=== PATIENT | male | born 1980 | race African-American/Black ===

== ENCOUNTER 2019-08-28 20:00 | Emergency (ER) | payer SELFPAY ==
--- NOTE | ~2019-08-28 | XR_ITS ---
EXAMINATION: XR chest 2V DATE: 08/29/2019 00:07 INDICATION: Shortness of breath TECHNIQUE: PA and lateral views of the chest were obtained. COMPARISON: None FINDINGS: The lungs are clear with no focal airspace opacities, pulmonary edema, pleural effusion or pneumothor ax. The cardiomediastinal silhouette is normal. Visualized bones and soft tissues are unremarkable. IMPRESSION: 1. No acute cardiopulmonary disease. Reviewed, dictated and finalized at location A. GER ASSESSMENT
[2019-08-28 20:30] VITALS: BP 166/102; PULSE 77; RESP 16; TEMP 37.3; O2SAT 100
[2019-08-28 23:15] VITALS: BP 116/115; PULSE 77; RESP 18; O2SAT 97
--- NOTE | 2019-08-28 23:18 | ED.GENADULT ---
HPI - General Adult General Chief complaint: Recheck/Abnormal Lab/Rx Stated complaint: High BP Time Seen by Provider: 08/28/19 23:09 Source: patient and family Mode of arrival: ambulatory Limitations: no limitations History of Present Illness HPI narrative: Patient is here because his significant other checked his blood pressure today and found it to be 160/100 on their home machine, they then went to a pharmacy and the pharmacist checked it at this same results. She checked his blood pressure because he has been complaining intermittent headache. Patient has a history of hypertension for which she was treated for 2 years ago, he stopped taking his medicine because he lost 100 pounds and felt like that was sufficient. I asked him what his blood pressure was at the time that he stopped taking his medicines he recalls that his systolic blood pressure was iin the 160s and his but his diastolic was lower. He is also been using his albuterol inhaler more frequently. Patient works in a [employer], and he states that he has seasonal allergies. Onset (ago): day(s) Location: head (not currently hurting.) Associated symptoms: denies other symptoms Treatments prior to arrival: none Related Data Allergies Allergy/AdvReac Type Severity Reaction Status Date / Time nut - unspecified Allergy Unknown Unknown Verified 02/19/19 21:34 BP med Allergy Mild Rash Uncoded 01/14/19 18:32 Review of Systems Review of Systems: All systems reviewed & are unremarkable except as noted in HPI and below PMFSH Past Medical History Medical History Hypertension Social History Social History (Updated 08/28/19 @ 23:35 by Ivania Yuan PA-C) Smoking status: Never smoker Alcohol intake: current Alcohol use details: social Substance use type: marijuana Living arrangements: with family Occupation/Education: occupation 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 Gender identity (if verbalized by the patient): Male Exam Const: General: no acute distress and alert Orientation/consciousness: patient oriented x3 HENMT: Head: normal to inspection Ears: TM's normal bilaterally Mouth: Yes moist mucous membranes Eyes: Conjunctivae: conjunctivae normal Pupils: Equal, round and reactive pupils present Neck: Carotids: other (no carotid bruit) Resp: Effort & Inspection: normal respiratory effort Auscultation: diminished lung sounds bilateral Cardio: Rate: regular rate Rhythm: regular rhythm GI: GI Palp: Yes Soft to palpation Skin: General skin exam: normal color Rashes: no rashes Neuro: General: patient oriented x3 and moves all extremities Course Course Emergency Course: Patient feels better after his albuterol treatment. Will review the use of his metered-dose inhaler with a spacer. Patient's blood pressure has remained the same but he states he feels better. Heart size is normal on chest x-ray his EKG was sinus rhythm. Labs were remarkable only for metabolic alkalosis. Discussed possible etiologies for his hypertension, patient's fianc? is concerned that it is primarily stress related. Patient should also have an evaluation for obstructive sleep apnea. We will give him the name of primary care physician to follow-up with Vital Signs Vital signs: Vital Signs Temperature 37.3 C 08/28/19 20:30 Pulse Rate 77 08/28/19 20:30 Respiratory Rate 16 08/28/19 20:30 Blood Pressure 166/102 H 08/28/19 20:30 Pulse Oximetry 100 08/28/19 20:30 Temperature 37.3 C 08/28/19 20:30 Pulse Rate 74 08/28/19 23:58 Respiratory Rate 16 08/28/19 23:58 Blood Pressure 166/115 H 08/28/19 23:19 Pulse Oximetry 98 08/28/19 23:19 Medical Decision Making Vital Signs Vital Signs: Vital Signs Temperature 37.3 C 08/28/19 20:30 Pulse Rate 77 08/28/19 20:30 Respiratory Rate 16 08/28/19 20:30 Blood Pressure 166/102 H 08/28/19 20:30 Puls
[2019-08-28 23:19] VITALS: BP 166/115; PULSE 79; RESP 20; O2SAT 98
--- NOTE | 2019-08-28 23:31 | ECG_ITS ---
Measurements Intervals [place] Rate: 80 P: 69 NM: 174 QRS: 82 QRSD: 88 T: -84 QT: 393 QTc: 455 Interpretive Statements SINUS RHYTHM POSSIBLE LEFT ATRIAL ENLARGEMENT DELAYED PRECORDIAL R/S TRANSITION ST-T WAVE ABNORMALITY IN INF/LAT LEADS- CONSIDER ISCHEMIA BASELINE ARTIFACT- I, AVR, V1 ABNORMAL ECG Electronically Signed On 08-29-2019 6:32:27 INTERIOR DESIGN PROFESSIONAL by Jaswant Washington D.O.
[2019-08-28 23:49] VITALS: PULSE 80; RESP 16
[2019-08-28] MEDS: ALBUTEROL SULFATE NEB 2.5 MG/3 ML INH INHALATION (23:49)
[2019-08-28 23:50] LABS: Basophils Absolute Auto 0.1 K/mm3 (0.0-0.1); Basophils Percent Auto 0.7 % (0.2-1.2); Eosinophils Absolute Auto 0.3 K/mm3 (0-0.3); Eosinophils Percent Auto 3.3 % (0-4.4); Hematocrit 46.7 % (42.0-52.0); Hemoglobin 15.3 g/dL (14.0-18.0); Immature Granulocyte Absolute 0.04 K/mm3 (0.00-0.031); Immature Granulocyte Percent A 0.5 % (0-0.5); Lymphocytes Absolute Auto 2.85 K/mm3 (0.9-3.2); Lymphocytes Percent Auto 32.6 % (18.3-44.2); Mean Corpuscular HGB Conc 32.8 g/dl (32-36); Mean Corpuscular Hemoglobin 30.1 pg (26-34); Mean Corpuscular Volume 91.7 fl (80-100); Mean Platelet Volume 9.4 fl (7.4-10.4); Monocytes Absolute Auto 0.9 K/mm3 (0.1-0.6); Monocytes Percent Auto 9.8 % (2.6-8.5); Neutrophils Absolute Auto 4.6 K/mm3 (1.3-6.7); Neutrophils Percent Auto 53.1 % (45.5-73.1); Platelet Count Result 242 k/mm3 (150-375); Red Blood Count 5.09 M/mm3 (4.6-6.20); Red Cell Distribution Width 12.2 % (11.5-14.5); White Blood Count 8.7 K/mm3 (4.5-10.0)
[2019-08-28 23:58] VITALS: PULSE 74; RESP 16
[2019-08-29 00:01] LABS: Alanine Aminotransferase 22 U/L (4-50); Albumin Level 4.1 g/dL (3.5-5.1); Alkaline Phosphatase 76 U/L (38-126); Aspartate Amino Transferase 34 U/L (17-59); Bilirubin,Total 0.9 mg/dL (0.2-1.3); Blood Urea Nitrogen 13 mg/dL (9-20); Calcium 8.5 mg/dL (8.4-10.2); Carbon Dioxide 32 mmol/L (22-30); Chloride 99 mmol/L (98-107); Estimated CRCL calculation 133 ml/min; Estimated Glomerular Filt Rate > 60; Glucose 73 mg/dL (75-110); Potassium 4.2 mmol/L (3.4-5.0); Sodium 139 mmol/L (137-145)
[2019-08-29 00:58] VITALS: BP 154/99; PULSE 85; RESP 17; O2SAT 100
[2019-08-29 01:01] LABS: Add Urine Microscopic? YES; Appearance Urine Clear (Clear); Bilirubin Urine Negative (Negative); Blood Urine Negative (Negative); Color Urine Yellow (Yellow); Glucose Urine UA Negative (Negative); Ketones Urine Negative (Negative); Leukocyte Esterase Ur Negative LEU/UL (Negative); Mucus Urine Moderate /lpf; Nitrate Urine Negative (Negative); Protein Urine Negative (Negative); RBC Urine 0-2 /hpf (0-2); Specific Grav Ur 1.025 (1.001-1.035); Squamous Epithelial Cell Urine Rare /hpf (Few); WBC Urine 0-3 /hpf
== END 2019-08-29 00:59 | disposition home or self-care (01) ==
PROVIDERS: Physician Assistant; Emergency Provider Emergency Medicine
DX: I10 Essential (primary) hypertension (principal); J45.20 Mild intermittent asthma, uncomplicated
CPT/HCPCS: 36415; 71046; 80053; 81001; 85025; 93005; 94640; 99283

== ENCOUNTER 2019-09-10 13:35 | Observation (INO) | payer SELFPAY ==
[2019-09-10] VITALS (14 sets, daily range): BP systolic 148–207; BP diastolic 81–106; PULSE 86–120; RESP 18–30; TEMP 36.5–37.5; O2SAT 91–98; BMI 36.3
--- NOTE | ~2019-09-10 | NM_ITS ---
EXAMINATION: NM lung vent and perfusion DATE: 09/10/2019 18:03 INDICATION: Shortness of breath asthma. TECHNIQUE: Before mCi xenon-133 by inhalation and 5.5 mCi Tc-99m MAA by intravenous route. Scintigra phic images of the chest were obtained. COMPARISON: Chest radiograph and CT dated 09/10/2019 FINDINGS: There is homogeneous radiotracer activity throughout the lungs on the single breath ventilation seque nce. There is diffuse retention of radiotracer activity on the washout images consistent with given h istory of asthma. There is relatively homogeneous perfusion throughout the lungs. No discrete ventil ation and perfusion mismatch is identified. IMPRESSION: 1. Normal perfusion study consistent with very low probability for pulmonary embolism. 2. Bilateral diffuse retention of activity on ventilation washout images consistent with obstructive pulmonary disease and given history of asthma. Reviewed, dictated and finalized at location A. CTOR OF SCIENTIFIC RESEARCH IMPRESSION: 1. Normal perfusion study consistent with very low probability for pulmonary em bolism. 2. Bilateral diffuse retention of activity on ventilation washout images consis tent with obstructive pulmonary disease and given history of asthma.
--- NOTE | ~2019-09-10 | CT_ITS ---
EXAMINATION: CTA chest PE protocol DATE: 09/10/2019 15:26 INDICATION: Shortness of breath TECHNIQUE: Computed tomography (CT) pulmonary angiogram of the chest was performed with 100 mL Omnipa que-350 intravenous contrast. Due to suboptimal timing of the contrast bolus and significant respirat ory motion artifact on the initial images, a repeat CT pulmonary angiogram of the chest was performed with an additional 60 mL Omnipaque 350 intravenous contrast. Additional 3D reconstructions utilizing coronal maximum intensity projection (MIP) were performed. Automated exposure control and iterative reconstruction technique were employed. The dose-length product was 1701.03 mGy-cm. COMPARISON: None FINDINGS: Adequate but suboptimal contrast opacification of the pulmonary arteries on the initial imaging but w ith additional limitations resulting from prominent streak artifact from dense contrast in the superi or vena cava and right atrium as well as moderate respiratory motion artifact in the infrahilar regio ns and bilateral lower lung zones. There is mild improvement in the degree of contrast opacification the repeat images but with more extensive mild to moderate respiratory motion throughout the lungs. N o central pulmonary arterial embolism through the lobar pulmonary arteries. Sensitivity and specifici ty are significantly decreased in the more peripheral pulmonary arteries. On both sets imaging howeve r there appears to be significantly decreased attenuation of the blood pool in the right basilar segm ental pulmonary arteries relative to the right middle lobe arteries at the same level on images with areas relatively mild motion which is suspicious for pulmonary embolism. Minimal atelectasis at the base of the right middle lobe and lingula. No pneumonia, pulmonary edema, pleural effusion or pneumothorax. Heart size is normal. No pericardial effusion. Thoracic aorta is no rmal in caliber with no dissection. No pathologically enlarged thoracic lymphadenopathy. Bilateral gy necomastia. Visualized upper abdomen is unremarkable. Mild to moderate thoracic spondylosis with military equipment specialist jim mild anterior wedging at T7, T8 and T9. IMPRESSION: 1. Significantly limited study due on both initial and repeat imaging due to suboptimal contrast opac ification, prominent streak artifact and mild to moderate respiratory motion artifact which significa ntly decreases sensitivity and specificity in the smaller subsegmental pulmonary arteries. No central pulmonary embolism through the lobar pulmonary arteries but with suspicion for pulmonary embolism in the basilar segmental pulmonary arteries of the right lower lobe. Would consider VQ scan for further evaluation. Dr. Thompson discussed these findings with ZENOBIA Miller at 3:55 PM. Reviewed, dictated and finalized at location A. W CUTTER IMPRESSION: 1. Significantly limited study due on both initial and repeat imaging due to lindsey boptimal contrast opacification, prominent streak artifact and mild to moderate respiratory motion artifact which significantly decreases sensitivity and spec ificity in the smaller subsegmental pulmonary arteries. No central pulmonary em bolism through the lobar pulmonary arteries but with suspicion for pulmonary em bolism in the basilar segmental pulmonary arteries of the right lower lobe. Wou ld consider VQ scan for further evaluation. Dr. Thompson discussed these findin gs with ZENOBIA Miller at 3:55 PM.
--- NOTE | ~2019-09-10 | XR_ITS ---
EXAMINATION: XR chest 2V DATE: 09/10/2019 18:02 INDICATION: Cough. Hypertension. Asthma. TECHNIQUE: PA and lateral views of the chest were obtained. COMPARISON: Chest radiograph dated 08/28/2019 FINDINGS: Minimal atelectasis at the right costophrenic angle. No other airspace opacities, pulmonary edema, pl eural effusion or pneumothorax. The cardiomediastinal silhouette is normal. Minimal to mild anterior wedging of a few mid thoracic vertebral bodies. IMPRESSION: 1. Minimal atelectasis at the lateral right lung base. No other acute cardiopulmonary disease. Reviewed, dictated and finalized at location A. ING OPERATOR IMPRESSION: 1. Minimal atelectasis at the lateral right lung base. No other acute cardiopul monary disease.
--- NOTE | 2019-09-10 13:52 | ECG_ITS ---
Measurements Intervals [place] Rate: 88 P: 66 CA: 168 QRS: 74 QRSD: 92 T: -60 QT: 373 QTc: 452 Interpretive Statements SINUS RHYTHM ST-T WAVE ABNORMALITY IN INF/LAT LEADS- CONSIDER ISCHEMIA ABNORMAL ECG Electronically Signed On 09-10-2019 16:14:25 BRANCH LIBRARY CLERK by Jaswant Washington D.O.
[2019-09-10] MEDS: ALBUTEROL SULFATE NEB 2.5 MG/0.5 ML INH 20 MG INHALATION ×2 (14:07→16:22)
[2019-09-10] MEDS: IPRATROPIUM BR 0.02% INH SOLN 0.5 MG/2.5 ML VIAL 1 MG INHALATION ×2 (14:08→16:22)
--- NOTE | 2019-09-10 14:18 | ED.GENADULT ---
HPI - General Adult General Chief complaint: Asthma Stated complaint: sob/asthma Time Seen by Provider: 09/10/19 13:46 Source: patient, family and old records reviewed Mode of arrival: ambulatory Limitations: no limitations History of Present Illness HPI narrative: Patient is a 39-year-old male who presents with dyspnea noting for the last several days he has felt short of breath with cough patient notes congestion and rhinorrhea. Patient notes he was seen 2 weeks ago. Patient was started on hydrochlorothiazide but has not followed up with primary care. Patient denies fever vomiting diarrhea chest pain patient also notes history of tobacco abuse. 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 Gender identity (if verbalized by the patient): Male Exam Narrative: Exam Narrative: GENERAL: Well-appearing, well-nourished, and in no acute distress. HEAD: Normocephalic, atraumatic. EYES: PERRLA and EOMI. ENT: Nares clear, no rhinorrhea or epistaxis. Mucous membranes moist. Oropharynx without tonsillar hypertrophy exudate or other lesions. Bilateral TMs pearly canas nonbulging NECK: Supple. No adenopathy or masses. CHEST: Clear to auscultation. No respiratory distress. No wheezes rales or rhonchi HEART: Regular rate and rhythm. No murmur heard. Normal peripheral pulses. ABDOMEN: Soft, nontender, nondistended EXTREMITIES: Normal range of motion. No edema. SKIN: Warm, dry, no rash. NEURO: No focal deficits. Alert and oriented x3. PSYCH: Normal mood and affect. Course Course Emergency Course: Patient in the room at this time aware of case findings treatment plan and diagnosis agreeing to stay in hospital due to his hypoxemia Consultations Consultation #1: Spoke with hospitalist who is agreed to accept the patient Vital Signs Vital signs: Vital Signs Temperature 97.7 F 09/10/19 13:47 Pulse Rate 100 09/10/19 13:47 Respiratory Rate 30 H 09/10/19 13:47 Blood Pressure 171/99 H 09/10/19 13:47 Pulse Oximetry 91 09/10/19 13:47 Temperature 98.0 F 09/10/19 15:32 Pulse Rate 106 H 09/10/19 16:26 Respiratory Rate 20 09/10/19 16:26 Blood Pressure 158/82 H 09/10/19 16:22 Pulse Oximetry 93 09/10/19 16:22 Medical Decision Making MDM Narrative Medical decision making narrative: Patient in the room at this time aware of case findings treatment plan and diagnosis will be kept in hospital was requiring oxygen due to hypoxemia no PE. No pneumonia seen on exam negative influenza patient with potential for COPD versus asthma exacerbation given his cough and history of tobacco abuse. Patient hemodynamically stable at this time was given steroids and updrafts in the emergency department. Vital Signs Vital Signs: Vital Signs Temperature 97.7 F 09/10/19 13:47 Pulse Rate 100 09/10/19 13:47 Respiratory Rate 30 H 09/10/19 13:47 Blood Pressure 171/99 H 09/10/19 13:47 Pulse Oximetry 91 09/10/19 13:47 Temperature 98.0 F 09/10/19 15:32 Pulse Rate 106 H 09/10/19 16:26 Respiratory Rate 20 09/10/19 16:26 Blood Pressure 158/82 H 09/10/19 16:22 Pulse Oximetry 93 09/10/19 16:22 Lab Data Result diagrams: 09/10/19 14:11 Labs: Lab Results 09/10/19 09/10/19 Range/Units 14:11 14:11 PT 12.9 (11.1-14.7) Seconds INR 1.0 APTT 29.6 (22.3-36.8) SECOND
--- NOTE | 2019-09-10 14:28 | PCRCNOTE ---
PT REFUSED AGBS
[2019-09-10 14:31] LABS: Alanine Aminotransferase 19 U/L (4-50); Albumin Level 4.3 g/dL (3.5-5.1); Alkaline Phosphatase 81 U/L (38-126); Aspartate Amino Transferase 28 U/L (17-59); Bilirubin,Total 1.2 mg/dL (0.2-1.3); Blood Urea Nitrogen 10 mg/dL (9-20); Calcium 8.8 mg/dL (8.4-10.2); Carbon Dioxide 29 mmol/L (22-30); Chloride 96 mmol/L (98-107); Estimated Glomerular Filt Rate > 60; Glucose 92 mg/dL (75-110); Sodium 137 mmol/L (137-145)
[2019-09-10 14:33] LABS: Prothrombin Time 12.9 Seconds (11.1-14.7)
[2019-09-10 14:42] LABS: Partial Thromboplastin Time 29.6 SECONDS (22.3-36.8)
[2019-09-10] MEDS: methylPREDNISolone SOD SUCC 125 MG VIAL IV PUSH (14:42)
[2019-09-10 14:43] LABS: NT Pro B Type Natriuretic Pept 632 PG/ML (5-100); Troponin I 0.013 ng/mL (0.000-0.034)
[2019-09-10] MEDS: hydrALAZINE HCL 20 MG/ML VIAL 10 MG IV PUSH (14:58)
--- NOTE | 2019-09-10 15:51 | PC.NURSE ---
Pt spo2 remained 87-88% on RA while sleeping. Pt placedon 2L O2. SPO2 increased to 93%.
[2019-09-10] MEDS: SODIUM CHLORIDE 0.9% IV 1,000 ML 125 ML IV CONT (20:20)
[2019-09-10] MEDS: FAMOTIDINE 20 MG/2 ML VIAL IV PUSH (20:20)
[2019-09-10] MEDS: ALBUTEROL SULFATE NEB 2.5 MG/0.5 ML INH 5 MG INHALATION (21:02)
[2019-09-10] MEDS: IPRATROPIUM BR 0.02% INH SOLN 0.5 MG/2.5 ML VIAL INHALATION (21:02)
--- NOTE | 2019-09-10 21:02 | PC.NURSE ---
This patient, Bruno Rodriguez, was admitted to Medical Room 248-. Patient/family oriented to hospital policies and general routines including ID bracelet, bed and alarms, visiting hours, pain management, procedures, bathroom and other care routines, personal items, smoking policy, room service/diet, and visiting hours. Valuables list has been completed. Information on how to activate the Rapid Response Team has been discussed. Patient/Family are encouraged to report perceived risks to care and to ask questions if they do not understand what they are told or what they should do.
--- NOTE | 2019-09-10 23:05 | PM.IMHP ---
H&P: HPI History of Present Illness Chief complaint: Asthma exacerbation, hypoxemia Narrative: Bruno Rodriguez is a 39 year old male who has a history of asthma and hypertension. The patient recently was diagnosed with hypertension and has been on hydrochlorothiazide. However this has not been working for him he has been checking his blood pressure at home is still been remaining only 180/80 or higher. He has been using a rescue inhaler but has not been helping him. He recently moved here from [place] and is unemployed. His is at the bedside and providing the information. The also believes that the patient has sleep apnea but has never been tested for it. They have found the primary care doctor that he was he for the 1st time on the 10th of this month. However believe is a misery not in [place] so they will need a list of providers that her taking new patients in this area. The patient smokes marijuana every day and still continues to smoke cigarettes. He does not have a nebulizer machine or for a can't afford 1 at this time. Hydralazine in the emergency room and nebulizer treatments. Solu-Medrol was started as well. Patient was placed on oxygen at 2 L per nasal cannula. He was admitted overnight for exacerbation of asthma. Date of service 09/10/2019 Review of Systems Review of Systems: Narrative: According to the the patient has been short of breath for at least several days has had a cough and congestion with a right nose. This is been going on for about 2 weeks. All systems reviewed & are unremarkable except as noted in HPI and below Constitutional: Constitutional: Reports as per HPI and Reports no additional constitutional complaints Eyes: Eyes: Reports as per HPI and Reports no additional eye complaints ENT: Reports system reviewed and no additional complaints, except as documented and Reports Normal hearing present Cardiovascular: Cardiovascular: Reports no additional cardiovascular complaints Respiratory: Respiratory: Reports no additional respiratory complaints and Reports no additional respiratory complaints Gastrointestinal: Gastrointestinal: Reports as per HPI and Reports no additional gastrointestinal complaints Musculoskeletal: Musculoskeletal: Reports no additional musculoskeletal complaints Integumentary/Breasts: Skin/Breast: Reports system reviewed and no additional complaints, except as docu and Reports as per HPI Neurologic: Reports system reviewed and no additional complaints, except as documented, Reports as per HPI and Reports Normal hearing present Psychiatric: Psychiatric: Reports no additional psychiatric complaints and Reports as per HPI Endocrine: Endocrine: Reports no additional endocrine complaints Hematologic/Lymphatic: Hematologic/Lymphatic: Reports no additional hematologic/lymphatic complaints Allergic/Immunologic: Allergic/Immunologic: Reports no additional allergic/immunologic complaints [facility] Family History Family History (Updated 09/10/19 @ 23:10 by Edel Oneill NP) Sibling Hypertension Mother Hypertension Social History Social History (Updated 09/10/19 @ 23:12 by Edel Oneill NP) Social History: The patient lives with his . He does not have a durable power ip attorney. He is a full code. He has no children. 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 He was supposed to start work at a new job tomorrow but has not been able to make it. He smokes marijuana on a daily basis. He smokes cigarettes a half pack cigarettes a day. 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
[2019-09-10] MEDS: MAGNESIUM SULF 2 GM/WATER 50ML 2 GM/50 ML BAG IVPB (23:35)
[2019-09-10] MEDS: methylPREDNISolone SOD SUCC 125 MG VIAL 60 MG IV PUSH (23:36)
[2019-09-10] MEDS: NICOTINE (*PBKC) 14 MG PATCH 1 PATCH TRANSDERM (23:39)
[2019-09-11] VITALS (12 sets, daily range): BP systolic 148–180; BP diastolic 78–98; PULSE 101–111; RESP 18–23; TEMP 36.7–37.3; O2SAT 94–97
[2019-09-11] MEDS: ALBUTEROL SULFATE NEB 2.5 MG/0.5 ML INH 5 MG INHALATION ×3 (02:26→14:35)
[2019-09-11] MEDS: IPRATROPIUM BR 0.02% INH SOLN 0.5 MG/2.5 ML VIAL INHALATION ×3 (02:26→14:35)
[2019-09-11] MEDS: SODIUM CHLORIDE 0.9% IV 1,000 ML 125 ML IV CONT ×2 (04:59→14:00)
[2019-09-11 05:44] LABS: Basophils Percent Auto 0.1 % (0.2-1.2); Hematocrit 45.2 % (42.0-52.0); Immature Granulocyte Absolute 0.05 K/mm3 (0.00-0.031); Immature Granulocyte Percent A 0.4 % (0-0.5); Lymphocytes Absolute Auto 0.32 K/mm3 (0.9-3.2); Lymphocytes Percent Auto 2.8 % (18.3-44.2); Mean Corpuscular HGB Conc 33.2 g/dl (32-36); Mean Corpuscular Hemoglobin 30.5 pg (26-34); Mean Corpuscular Volume 91.9 fl (80-100); Mean Platelet Volume 9.1 fl (7.4-10.4); Monocytes Absolute Auto 0.1 K/mm3 (0.1-0.6); Monocytes Percent Auto 0.8 % (2.6-8.5); Neutrophils Absolute Auto 10.9 K/mm3 (1.3-6.7); Neutrophils Percent Auto 95.9 % (45.5-73.1); Platelet Count Result 258 k/mm3 (150-375); Red Blood Count 4.92 M/mm3 (4.6-6.20); Red Cell Distribution Width 12.4 % (11.5-14.5); White Blood Count 11.4 K/mm3 (4.5-10.0)
[2019-09-11 05:58] LABS: Alanine Aminotransferase 20 U/L (4-50); Albumin Level 4.3 g/dL (3.5-5.1); Alkaline Phosphatase 68 U/L (38-126); Aspartate Amino Transferase 28 U/L (17-59); Bilirubin,Total 0.8 mg/dL (0.2-1.3); Blood Urea Nitrogen 9 mg/dL (9-20); Calcium 8.6 mg/dL (8.4-10.2); Carbon Dioxide 27 mmol/L (22-30); Chloride 95 mmol/L (98-107); Estimated CRCL calculation 148 ml/min; Estimated Glomerular Filt Rate > 60; Glucose 200 mg/dL (75-110); Magnesium 2.1 mg/dL (1.6-2.3); Potassium 3.9 mmol/L (3.4-5.0); Sodium 138 mmol/L (137-145)
[2019-09-11] MEDS: methylPREDNISolone SOD SUCC 125 MG VIAL 60 MG IV PUSH ×2 (06:08→13:55)
[2019-09-11 07:13] LABS: Thyroid Stimulating Hormone Reflex 0.327 uIU/mL (0.465-4.68)
[2019-09-11] MEDS: FAMOTIDINE 20 MG/2 ML VIAL IV PUSH (10:37)
[2019-09-11] MEDS: NICOTINE (*PBKC) 14 MG PATCH 1 PATCH TRANSDERM (10:37)
[2019-09-11] MEDS: hydrALAZINE HCL 20 MG/ML VIAL 10 MG IV PUSH (10:47)
[2019-09-11] MEDS: BENZOCAINE/MENTHOL (*BKC) 18 EA LOZENGE 1 LOZENGE PO (13:55)
--- NOTE | 2019-09-11 15:04 | PM.IMPN ---
Progress Note: A&P Assessment and Plan (1) Asthma with acute exacerbation: Qualifiers: Asthma severity: unspecified severity Asthma persistence: unspecified Qualified Code(s): J45.901 - Unspecified asthma with (acute) exacerbation Code(s): J45.901 - Unspecified asthma with (acute) exacerbation Status: Chronic Assessment and Plan: Clinically improved. On room air. Will discharge home today with Flovent, tapering predisone, albuterol HFA. (2) Hypertension: Qualifiers: Hypertension type: essential hypertension Qualified Code(s): I10 - Essential (primary) hypertension Code(s): I10 - Essential (primary) hypertension Status: Chronic Assessment and Plan: Blood pressure reviewed on 09/11/2019 and remains elevated. Will have patient continue home HCTZ and add amlodipine. (3) Tobacco abuse: Code(s): Z72.0 - Tobacco use Status: Acute Assessment and Plan: Continue nicotine patch. Cessation encouraged. (4) Marijuana use: Code(s): F12.90 - Cannabis use, unspecified, uncomplicated Status: Acute Assessment and Plan: Encouraged patient to use other methods. (5) DVT prophylaxis: Code(s): Z29.9 - Encounter for prophylactic measures, unspecified Status: Acute Assessment and Plan: SCDs. Time Spent With Patient Time with patient: 15 - 25 minutes Subjective Date/time seen: 09/11/19 15:04 Interval history: Date of Service: 09/11/2019. Review of Systems Review of Systems: Narrative: Feels better. Wants to go home. Constitutional: Constitutional: Denies chills and Denies fever(s) ENT: Reports system reviewed and no additional complaints, except as documented Cardiovascular: Cardiovascular: Denies chest pain Respiratory: Respiratory: Reports cough and Denies dyspnea Gastrointestinal: Gastrointestinal: Denies abdominal pain, Denies nausea and Denies vomiting Genitourinary: Genitourinary: Reports no additional male genitourinary complaints Musculoskeletal: Musculoskeletal: Reports neck pain Integumentary/Breasts: Skin/Breast: Denies rash Neurologic: Denies headache(s) Psychiatric: Psychiatric: Denies anxiety, Denies confusion and Denies depression Exam Narrative: Exam Narrative: Awake and alert. Const: General: no acute distress HENMT: Mouth: Yes moist mucous membranes Neck: Neck: supple Lymphatic: lymphadenopathy not noted Resp: Auscultation: no rales, no wheezes and diminished lung sounds Cardio: Rate: regular rate Rhythm: regular rhythm GI: Inspection: non-distended GI Palp: Yes Soft to palpation and No Tenderness to palpation present (GI) Auscultation: normal bowel sounds Skin: General skin exam: no rashes or lesions noted Neuro: Cognition (Neuro): normal cognition Speech: normal speech Extrem: General: no edema Psych: Mental Status: mental status grossly normal Affect: normal affect Objective Data Vital Signs Vital Signs: Vital Signs - 24 hr 09/10/19 15:32 09/10/19 15:46 09/10/19 16:22 Temperature 98.0 F Pulse Rate 120 H 112 H Respiratory Rate 24 H 28 H Blood Pressure 186/106 H 179/81 H 158/82 H Pulse Oximetry 98 93 09/10/19 16:26 09/10/19 18:55 09/10/19 20:00 Temperature 98.7 F Pulse Rate 106 H 100 108 H Respiratory Rate 20 20 Blood Pressure 158/90 H Pulse Oximetry 97 09/10/19 20:04 09/10/19 21:02 09/10/19 21:08 Temperature 97.8 F Pulse Rate 101 H 104 H 104 H Respiratory Rate 30 H 20 18 Blood Pressure 148/90 H Pulse Oximetry 95 94 09/10/19 21:11 09/10/19 22:39 09/11/19 02:00 Temperature 99.5 F 99.1 F Pulse Rate 101 H 113 H 103 H Respiratory Rate 20 20 20 Blood Pressure 161/88 H 157/81 H Pulse Oximetry 97 97 09/11/19 02:32 09/11/19 02:42 09/11/19 04:00 Temperature Pulse Rate 101 H 103 H 106 H Respiratory Rate 20 20 Blood Pressure Pulse Oximetry 09/11/19 05:50 09/11/19 08:19 09/11/19 08:29 Tem
[2019-09-11] MEDS: AMLODIPINE BESYLATE 5 MG TABLET PO (16:11)
--- NOTE | 2019-09-11 20:01 | PM.DS ---
DS: Diagnosis Admitting Diagnosis Admitting Diagnosis: Unspecified asthma with (acute) exacerbation Discharge Diagnosis (1) Asthma with acute exacerbation: Qualifiers: Asthma persistence: unspecified Asthma severity: unspecified severity Qualified Code(s): J45.901 - Unspecified asthma with (acute) exacerbation Code(s): J45.901 - Unspecified asthma with (acute) exacerbation Status: Chronic (2) Hypertension: Qualifiers: Hypertension type: essential hypertension Qualified Code(s): I10 - Essential (primary) hypertension Code(s): I10 - Essential (primary) hypertension Status: Chronic (3) Tobacco abuse: Code(s): Z72.0 - Tobacco use Status: Acute (4) Marijuana use: Code(s): F12.90 - Cannabis use, unspecified, uncomplicated Status: Acute DS: Summary Hospital Course Reason for hospitalization: Shortness of breath. Hospital Course: Date of Service of Discharge: September 11, 2019. History of Present Illness: Patient is a 39-year-old with known as benign hypertension. Patient was recently diagnosed with hypertension started on hydrochlorothiazide. Patient present to the emergency room with shortness of breath and cough. Patient does have a rescue inhaler but has never had maintenance inhalers. No recent fever or chills. No chest pain. He does continue to smoke tobacco as well as marijuana. In the emergency room, findings were consistent with asthma exacerbation for which she was given nebulizer treatments and IV Solu-Medrol. Patient was felt appropriate for placement in observation for further evaluation and treatment as blood pressure was also elevated. Course in Hospital: On admission, patient was placed on the medical floor with telemetry. He was started on nebulizer treatments as well as IV Solu-Medrol. No antibiotics were needed as he did not have a bacterial infectious process. He remained on room air throughout his stay. Patient rapidly improved. By the day after admission, patient was feeling much improved. Lung exam improved with no wheezing heard by the time of discharge. Discussion was held with patient regarding having a maintenance steroid inhaler at home at discharge as well as rescue inhaler. Additionally, plan to taper steroids at discharge. Blood pressure was monitored throughout his stay and did remain elevated. The low-dose hydrochlorothiazide was not continued but patient reports had some benefit at home although blood pressure not optimal. Amlodipine was added while in hospital with plan to continue at discharge. Patient had no chest pain, headaches or dizziness while in hospital. Patient was encouraged on cessation of both tobacco and marijuana use. Nicotine patch was placed with plan to continue at discharge. With the patient stabilized, he was discharged home on the afternoon of September 11, 2019. Status at Discharge Cognitive/behavioral status at discharge: Stable. Functional status at discharge: independent ambulation Overall status at discharge: patient is back to baseline Time Spent with Patient Time attestation: Total time spent providing and/or coordinating discharge services: 40 minutes. Time spent: Greater than 30 minutes Exam Narrative: Exam Narrative: Vital Signs Temp Pulse Resp BP Pulse Ox 97.7 F 100 30 H 171/99 H 91 09/10/19 13:47 09/10/19 13:47 09/10/19 13:47 09/10/19 13:47 09/10/19 13:47 Temp Pulse Resp BP Pulse Ox 98.1 F 104 H 18 148/78 H 97 09/11/19 12:12 09/11/19 14:35 09/11/19 14:35 09/11/19 12:12 09/11/19 12:12 Awake and alert. Const: General: no acute distress HENMT: Mouth: Yes moist mucous membranes Neck: Neck: supple
== END 2019-09-11 16:50 | disposition home or self-care (01) ==
LOC: ANHED 19:00 → ANH2MED 19:17
PROVIDERS: Emergency Medicine Emergency Medical Services; Nurse Practitioner; Admitting Provider Hospitalist; Emergency Provider Emergency Medicine; Visit Provider Hospitalist
DX: J45.901 Unspecified asthma with (acute) exacerbation (principal); I10 Essential (primary) hypertension; F17.210 Nicotine dependence, cigarettes, uncomplicated; F12.90 Cannabis use, unspecified, uncomplicated
CPT/HCPCS: 36415; 36600; 71046; 71275; 78582; 80053; 82805; 83735; 83880; 84439; 84443; 84480; 84484; 85025; 85610; 85730; 87804; 93005; 94640; 96361; 96365; 96374; 96375; 96376; 99285; A9270; A9540; A9558; G0378; G0379; J0131; J0360; J2930; J3475; J7030; Q9967

== ENCOUNTER 2022-04-27 19:01 | Emergency (ER) | payer BC, SELFPAY ==
[2022-04-27 19:02] VITALS: BP 171/120; PULSE 90; RESP 18; TEMP 36.1; O2SAT 98
--- NOTE | 2022-04-27 20:19 | PC.NURSE ---
pt in waiting room walking without complaints.
--- NOTE | 2022-04-27 20:30 | ED.BACK ---
HPI - Back Pain/Injury General Chief Complaint: Back Pain/Injury Stated Complaint: Back pain Time Seen by Provider: 04/27/22 20:30 History of Present Illness HPI Narrative: 41-year-old male presents to the emergency room for evaluation of lower back pain for 2 days. Patient states that he picking up his nephew when he began experiencing low back pain. Patient states when he walks he can feel the pain radiate down posteriorly to both legs. Patient denies any saddle anesthesia or low back pain red flags. Denies changes or difficulty with his bowel or bladder habits. Denies any known injury or trauma. Related Data Allergies Allergy/AdvReac Type Severity Reaction Status Date / Time nut - unspecified Allergy Unknown Unknown Verified 09/10/19 13:50 BP med Allergy Mild Rash Uncoded 09/10/19 13:50 Review of Systems Review of Systems: CONSTITUTIONAL: Denies fever, chills, or sweats. EYES: Denies visual changes, redness, or discharge. ENT: Denies rhinorrhea, congestion, sore throat, or otalgia. CARDIOVASCULAR: Denies chest pain, palpitations, or edema. RESPIRATORY: Denies cough or dyspnea. GASTROINTESTINAL: Denies abdominal pain, nausea, vomiting, or diarrhea. GENITOURINARY: Denies dysuria or hematuria. SKIN: Denies rash or itching. MUSCULOSKELETAL: Reports low back pain NEUROLOGIC: Denies headache, numbness, dizziness, or weakness. PSYCHIATRIC: Denies anxiety or depression. [facility] Past Medical History Medical History Hypertension Family History Family History Sibling Hypertension Mother Hypertension Social History Social History Social History: The patient lives with his . He does not have a durable power civil structural engineer. He is a full code. He has no children. 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 He was supposed to start work at a new job tomorrow but has not been able to make it. He smokes marijuana on a daily basis. He smokes cigarettes a half pack cigarettes a day. 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 Gender identity (if verbalized by the patient): Male Spiritual care concerns: No Agree to blood products: No Exam Narrative: GENERAL: Well-appearing, well-nourished, no physical limitations, and in no acute distress. HEAD: Normocephalic, atraumatic. EYES: Conjunctivae normal, PERRLA and EOMI. CHEST: Clear to auscultation. No respiratory distress. No wheezes rales or rhonchi. No tenderness. HEART: Regular rate and rhythm. No murmur heard. Normal peripheral pulses. ABDOMEN: Soft, nontender, nondistended, normal active bowel sounds. BACK: No CVA tenderness; No midline cervical/thoracic/lumbar tenderness, step-offs, bony abnormality; FROM. -SLE bilaterally. Tenderness over the bilateral thoracolumbar fascia. EXTREMITIES: Normal range of motion. No edema. No clubbing or cyanosis SKIN: Warm, dry, no rash. No noted wounds NEURO: No focal deficits. Alert and oriented x3. MAEW. CN's II-XI intact bilaterally, normal gait PSYCH: Cooperative. Normal mood and affect. Course Vital Signs Vital signs: Vital Signs Temperature 36.1 C L 04/27/22 19:02 Pulse Rate 90 04/27/22 19:02 Respiratory Rate 18 04/27/22 19:02 Blood Pressure 171/120 H 04/27/22 19:02 Pulse Oximetry 98 04/27/22 19:02 Oxygen Delivery Room Air 04/27/22 19:02 Temperature 36.1 C L 04/27/22 19:02 Pulse Rate 90 04/27/22 19:02 Respiratory Rate 18 04/27/22 19:02 Blood Pressure 171/120 H 04/27/22 19:02 Pulse Oximetr
--- NOTE | 2022-04-27 20:46 | PC.NURSE ---
pt called 2x no answer at 2034 and 2040. pt walked in from outside informed to wait in waiting room.
--- NOTE | 2022-04-27 21:21 | PC.NURSE ---
Pt ambulatory c steady, even, unassisted gait from triage. C/O waking up 5 days ago with lower back pain. Worse with movement. Reports lower back feels like it's pulling when pt is seated and he raises his legs. Denies loss of bowel or bladder. No s/s of acute distress, although pt rates pain 10/10 as the worst pain of his life.
[2022-04-27] MEDS: methocarbamoL 500 MG TABLET PO (22:00)
== END 2022-04-27 22:02 | disposition home or self-care (01) ==
LOC: ANHED 21:57
PROVIDERS: Emergency Provider Nurse Practitioner Family
DX: S39.012A Strain of muscle, fascia and tendon of lower back, initial encounter (principal); I10 Essential (primary) hypertension; F17.210 Nicotine dependence, cigarettes, uncomplicated; X50.0XXA Overexertion from strenuous movement or load, initial encounter
CPT/HCPCS: 99283; A9270

== ENCOUNTER 2022-05-02 | Emergency (ER) | payer BC, SELFPAY ==
[2022-05-02 00:12] VITALS: BP 176/117; PULSE 95; RESP 18; TEMP 36.7; O2SAT 97
--- NOTE | 2022-05-02 03:33 | ED.GENADULT ---
HPI - General Adult General Chief complaint: Back Pain/Injury Stated complaint: back pain Time Seen by Provider: 05/02/22 01:51 History of Present Illness HPI narrative: this is a 41-year-old male presenting ED with back pain. The patient has been having back pain that originates in his left glute and extends down the back of his left leg for approximately week and half. He was seen here last week diagnosis sciatica and discharged with Robaxin. Patient has been taking Robaxin but has not been taking Motrin and Tylenol. Patient denies any history of IV drug abuse, fever, chills, history of cancer, trauma, urinary retention, bowel incontinence or saddle anesthesia Related Data Allergies Allergy/AdvReac Type Severity Reaction Status Date / Time nut - unspecified Allergy Unknown Unknown Verified 05/02/22 01:48 Penicillins Allergy Unknown Unknown Verified 05/02/22 01:48 BP med Allergy Mild Rash Uncoded 05/02/22 01:48 Review of Systems Review of Systems: CONSTITUTIONAL: Denies night sweats. EYES: No eye pain ENT: Denies rhinorrhea CARDIOVASCULAR: Denies palpitations RESPIRATORY: Denies hemoptysis GASTROINTESTINAL: Denies hematemesis GENITOURINARY: Denies hematuria. SKIN: Denies rash MUSCULOSKELETAL: Denies myalgia. NEUROLOGIC: Denies weakness. PSYCHIATRIC: Denies delusions PMFSH Past Medical History Medical History Hypertension Family History Family History Sibling Hypertension Mother Hypertension Social History Social History Social History: The patient lives with his . He does not have a durable power attorney law clerk. He is a full code. He has no children. 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 He was supposed to start work at a new job tomorrow but has not been able to make it. He smokes marijuana on a daily basis. He smokes cigarettes a half pack cigarettes a day. 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 Gender identity (if verbalized by the patient): Male Spiritual care concerns: No Agree to blood products: No Exam Narrative: APPEARANCE: No apparent distress. Head atraumatic. EYES: PERRLA/EOMI, NOSE: Normal no drainage NECK: Supple, Trachea midline RESPIRATORY: CTAB, No increased work of breathing. CARDIOVASCULAR: S1S2 appreciated ABDOMINAL: Soft, nontender, nondistended, MUSCULOSKELETAl: No obvious deformities, straight leg is negative bilaterally. Patient is able to ambulate. No midline lumbar tenderness. mild tenderness palpation over the left sacroiliac region NEURO: Alert. Moving 4/4 extremities SKIN:: Warm, dry. Normal color PSYCHIATRIC: Normal affect Course Vital Signs Vital signs: Vital Signs Temperature 98.1 F 05/02/22 00:12 Pulse Rate 95 05/02/22 00:12 Respiratory Rate 18 05/02/22 00:12 Blood Pressure 176/117 H 05/02/22 00:12 Pulse Oximetry 97 05/02/22 00:12 Oxygen Delivery Room Air 05/02/22 00:12 Temperature 98.1 F 05/02/22 00:12 Pulse Rate 95 05/02/22 00:12 Respiratory Rate 18 05/02/22 00:12 Blood Pressure 176/117 H 05/02/22 00:12 Pulse Oximetry 97 05/02/22 00:12 Oxygen Delivery Room Air 05/02/22 00:12 Medical Decision Making MDM Narrative Medical decision making narrative: is a 41-year-old male presenting with sciatica. He has only been taking Robaxin and is not been taking Motrin or Tylenol. He has no red flag symptoms. I was called away to a cardiac arrest and when I returned the patient was sitting in
[2022-05-02] MEDS: ACETAMINOPHEN 500 MG TABLET 1000 MG PO (03:37)
[2022-05-02] MEDS: IBUPROFEN 400 MG TABLET 800 MG PO (03:38)
[2022-05-02] MEDS: methocarbamoL 750 MG TABLET 1500 MG PO (03:46)
== END 2022-05-02 03:45 | disposition home or self-care (01) ==
PROVIDERS: Emergency Provider Emergency Medicine
DX: M54.42 Lumbago with sciatica, left side (principal); I10 Essential (primary) hypertension; F17.210 Nicotine dependence, cigarettes, uncomplicated
CPT/HCPCS: 99283; A9270

== ENCOUNTER 2022-07-16 01:06 | Emergency (ER) | payer BC, SELFPAY ==
[2022-07-16 01:10] VITALS: BP 156/108; PULSE 93; RESP 16; TEMP 36.6; O2SAT 97
--- NOTE | 2022-07-16 02:12 | ED.GENADULT ---
HPI - General Adult General Chief complaint: Dental/Oral Stated complaint: mouth Time Seen by Provider: 07/16/22 02:02 History of Present Illness HPI narrative: Mr. Rodriguez Is a 42-year-old gentleman who presented emergency room with complaints of dental pain x2 weeks. Patient states that the left side of his upper and lower mouth have been hurting for approximately 2 weeks. Patient states he did take acetaminophen yesterday without any relief. Patient denies any fever chills. Patient denies any drainage from his teeth. Patient denies any foul taste in his mouth. Patient denies any fever chills. Patient states that he does not have a dentist and has not attempted to call a dentist. Patient did discuss with the RN that he did take a muscle relaxer to see if this would help with his dental pain, but states that did not help at all. Patient denies any chest pain, shortness of breath, lightheadedness, dizziness, syncopal, or near syncopal episodes. Related Data Allergies Allergy/AdvReac Type Severity Reaction Status Date / Time nut - unspecified Allergy Unknown Unknown Verified 07/16/22 02:03 Penicillins Allergy Unknown Unknown Verified 07/16/22 02:03 BP med Allergy Mild Rash Uncoded 07/16/22 02:03 Review of Systems Review of Systems: A 12 point review of systems was completed patient all pertinent positive and negative per HPI the remainder are unremarkable. [facility] Past Medical History Medical History Hypertension Family History Family History Sibling Hypertension Mother Hypertension Social History Social History Social History: The patient lives with his . He does not have a durable power erisa attorney. He is a full code. He has no children. 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 He was supposed to start work at a new job tomorrow but has not been able to make it. He smokes marijuana on a daily basis. He smokes cigarettes a half pack cigarettes a day. 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 Gender identity (if verbalized by the patient): Male Spiritual care concerns: No Agree to blood products: No Exam Narrative: Constitutional: Patient is well-nourished in no acute distress. Patient is alert and oriented x3 HEENT: Moist mucous membranes. No scleral icterus. No lymphadenopathy. Patient has multiple broken teeth and dental caries noted. There is no drainage noted from any of the broken teeth on the left side of patient's upper or lower mouth. Neck: No carotid bruits noted no JVD noted Lungs: Lung sounds are clear to auscultation bilaterally. No accessory muscle use. No rhonchi, rales, or wheezes noted. Cardiovascular: Apical pulse is regular rate and rhythm. S1-S2 noted, no S3 or S4 noted. No gallops, murmurs, or rubs noted. Abdomen: Soft, round, and nontender. No palpable masses. Extremities: No edema. Nontender. Skin: No rashes or lesions. Warm and dry. Skin is intact. Neurological: No focal neurological deficits. Cranial nerves II-XII grossly intact. Psychiatric: Cooperative, appropriate mood, and affect Course Course Emergency Course: Discussed in depth with patient that he will need to find a dentist to ultimately fix this problem. Patient verbalized understanding. Did discuss with patient that he needs to take all the antibiotics that he has been given even if he is feeling improved. Patient verbalized understanding. Vital Signs Vital signs: Vital Signs Temperature
== END 2022-07-16 02:50 | disposition home or self-care (01) ==
PROVIDERS: Emergency Provider Nurse Practitioner Adult Health
DX: K02.9 Dental caries, unspecified (principal); I10 Essential (primary) hypertension; F17.210 Nicotine dependence, cigarettes, uncomplicated
CPT/HCPCS: 99283

== ENCOUNTER 2023-06-27 16:53 | Emergency (ER) | payer BC, SELFPAY ==
[2023-06-27 17:02] VITALS: BP 177/116; PULSE 89; RESP 16; TEMP 36.8; O2SAT 98
--- NOTE | 2023-06-27 17:24 | ED.GENADULT ---
HPI - General Adult General Chief complaint: Extremity Injury, Upper Stated complaint: R SHOULDER PAIN Source: patient Mode of arrival: ambulatory Limitations: no limitations History of Present Illness HPI narrative: Patient presents for evaluation of right shoulder pain for last 2 weeks. He cannot identify any precipitating cause or injury. He woke from sleep with the symptoms. 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 He rates his current pain is 7/10 severity. No radicular component. No paresthesias. No loss of ROM. He took an unknown muscle relaxer which seemed to help. He has missed work and is needing a note to allow him to return to work 2 days from now. Related Data Allergies Allergy/AdvReac Type Severity Reaction Status Date / Time nut - unspecified Allergy Unknown Unknown Verified 07/16/22 02:03 Penicillins Allergy Unknown Unknown Verified 07/16/22 02:03 BP med Allergy Mild Rash Uncoded 07/16/22 02:03 Review of Systems Review of Systems: CONSTITUTIONAL: Denies fever, chills, or sweats. EYES: Denies visual changes, redness, or discharge. ENT: Denies rhinorrhea, congestion, sore throat, or otalgia. CARDIOVASCULAR: Denies chest pain, palpitations, or edema. RESPIRATORY: Denies cough or dyspnea. GASTROINTESTINAL: Denies abdominal pain, nausea, vomiting, or diarrhea. GENITOURINARY: Denies dysuria or hematuria. SKIN: Denies rash or itching. MUSCULOSKELETAL: Reports right shoulder pain. Denies back pain or myalgia. NEUROLOGIC: Denies headache, numbness, dizziness, or weakness. PSYCHIATRIC: Denies anxiety or depression. [facility] Past Medical History Medical History Hypertension Surgical History Surgical History No pertinent past surgical history Family History Family History Sibling Hypertension Mother Hypertension Social History Social History Social History: The patient lives with his . He does not have a durable power civil rights attorney. He is a full code. He has no children. 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 He was supposed to start work at a new job tomorrow but has not been able to make it. He smokes marijuana on a daily basis. He smokes cigarettes a half pack cigarettes a day. 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 Gender identity (if verbalized by the patient): Male Spiritual care concerns: No Agree to blood products: No Exam Narrative: GENERAL: Well-appearing, well-nourished, and in no acute distress. HEAD: Normocephalic, atraumatic. EYES: PERRLA and EOMI. ENT: Nares clear, no rhinorrhea or epistaxis. Mucous membranes moist. Oropharynx without tonsillar hypertrophy exudate or other lesions. Bilateral TMs pearly canas nonbulging NECK: Supple. No adenopathy or masses. No carotid bruits or JVD CHEST: Clear to auscultation. No respiratory distress. No wheezes rales or rhonchi HEART: Regular rate and rhythm. No murmur heard. Normal peripheral pulses. ABDOMEN: Soft, nontender, nondistended, normal active bowel sounds. EXTREMITIES: Full range of motion of the right shoulder and right elbow. No crepitus or deformity in the right upper extremity. There is actually no tenderness in RUE or neck. 5/5 hand pot filler strength bilaterally SKIN: Warm, dry, no rash. NEURO: No focal deficits. Alert and oriented x3. PSYCH: Normal mood and affect. Course
== END 2023-06-27 17:24 | disposition home or self-care (01) ==
PROVIDERS: Emergency Provider Nurse Practitioner
DX: M25.511 Pain in right shoulder (principal); F17.210 Nicotine dependence, cigarettes, uncomplicated; F12.90 Cannabis use, unspecified, uncomplicated; I10 Essential (primary) hypertension
CPT/HCPCS: 99213; G0463

== ENCOUNTER 2023-08-02 04:00 | Emergency (ER) | payer BC, SELFPAY ==
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
[2023-08-02 04:02] VITALS: BP 187/134; PULSE 93; RESP 14; TEMP 36.6; O2SAT 97
[2023-08-02] MEDS: KETOROLAC (*BKC) 60 MG/2 ML VIAL IM (04:23)
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
[2023-08-02] MEDS: ORPHENADRINE CITRATE 100 MG TABLET.ER PO (04:27)
[2023-08-02] MEDS: HYDROcodone/acetaminophen (*CRX) 5-325 MG TABLET 1 TAB PO (04:28)
[2023-08-02 05:34] VITALS: BP 168/102; PULSE 90; RESP 16; O2SAT 100
== END 2023-08-02 05:35 | disposition home or self-care (01) ==
PROVIDERS: Emergency Provider Emergency Medicine
DX: M54.16 Radiculopathy, lumbar region (principal); I10 Essential (primary) hypertension; F17.210 Nicotine dependence, cigarettes, uncomplicated
CPT/HCPCS: 72131; 96372; 99284; A9270; J1100; J1885

== ENCOUNTER 2023-10-02 22:58 | Inpatient (IN) | payer BC, SELFPAY ==
--- NOTE | ~2023-10-02 | US_ITS ---
US renal BI, US retroperitoneal duplex ltd 10/08/2023 12:49 (accession [id number]), 10/08/2023 11:27 (accession [id number]) Procedure: Realtime transabdominal ultrasound of the kidneys and bladder. Renal Doppler ultrasound. Indication: Hypertension Comparison: No prior studies Findings: Renal echotexture is normal bilaterally without hydronephrosis, contour deforming mass or r enal calculus. The right kidney measures 12.9 cm and left kidney measures 11.3 cm. Bladder within no rmal limits. Renal artery velocities and renal-aortic systolic velocity ratios are within normal limi ts. Impression: 1: Unremarkable renal ultrasound. No evidence for renal artery stenosis. No stones, masses or hydrone phrosis. Reviewed, dictated and finalized at location B. Impression: 1: Unremarkable renal ultrasound. No evidence for renal artery stenosis. No sto korey, masses or hydronephrosis. Impression: 1: Unremarkable renal ultrasound. No evidence for renal artery stenosis. No sto korey, masses or hydronephrosis.
--- NOTE | ~2023-10-02 | US_ITS ---
EXAMINATION: US venous doppler [facility] DATE: 10/05/2023 15:38 INDICATION: Lower limb swelling TECHNIQUE: Grayscale ultrasound images without and with compression and Doppler ultrasound images of the bilateral lower extremity veins were obtained. COMPARISON: None. FINDINGS: The visualized portions of right common femoral vein, profunda (deep) femoral vein, femoral vein, pop liteal vein, posterior tibial veins, peroneal veins, gastrocnemius vein and greater saphenous vein ou tflow are patent. The visualized portions of left common femoral vein, profunda femoral vein, femoral vein, popliteal v ein, gastrocnemius vein and greater saphenous vein outflow are patent. IMPRESSION: 1. No deep venous thrombosis in either lower limb. Reviewed, dictated and finalized at location A.
--- NOTE | ~2023-10-02 | XR_ITS ---
XR chest 2V 10/02/2023 23:55 Indication: Shortness of breath Procedure: PA and lateral views of the chest Comparison: 09/10/2019 Findings: Cardiomegaly. Bibasilar infiltrates may represent atelectasis or developing pneumonia. No p leural effusion or pneumothorax. No acute osseous abnormality. Impression: 1: Bibasilar infiltrates which may represent atelectasis or developing pneumonia. 2: Cardiomegaly. Reviewed, dictated and finalized at location A. Impression: 1: Bibasilar infiltrates which may represent atelectasis or developing pneumoni a. 2: Cardiomegaly.
--- NOTE | ~2023-10-02 | XR_ITS ---
EXAMINATION: XR chest 1V portable DATE: 10/05/2023 10:13 INDICATION: Shortness of breath. TECHNIQUE: A single frontal view of the chest was obtained on 2 radiographs. COMPARISON: Chest 2 views 10/02/2023, chest CT 09/10/2019 FINDINGS: There is mild atelectasis in right lower lung zone. No pleural effusion or pneumothorax. Ca rdiomegaly is noted. IMPRESSION: 1. Mild atelectasis in right lower lung zone. 2. Cardiac megaly. Reviewed, dictated and finalized at location E.
--- NOTE | ~2023-10-02 | CT_ITS ---
EXAMINATION: CTA chest PE protocol DATE: 10/05/2023 15:45 INDICATION: Shortness of breath TECHNIQUE: Computed tomography (CT) pulmonary angiogram of the chest was performed with 100 mL Omnipa que-350 intravenous contrast. Additional 3D reconstructions utilizing coronal maximum intensity proje ction (MIP) were performed. Automated exposure control and iterative reconstruction technique were em ployed. The dose-length product was 1173.25 mGy-cm. COMPARISON: None FINDINGS: No pulmonary embolism. There is compressive atelectasis in the anterior left lower lobe with addition al scattered linear discoid atelectasis in the lingula and bilateral lower lobes. Thicker band of con solidation in the anterior left lower lobe which could represent additional atelectasis or pneumonia. New 6 mm pleural-based left lower lobe nodule at the posterior sulcus. Small right pleural effusion . Cardiomegaly. No pericardial effusion. Thoracic aorta is normal in caliber with no dissection. No p athologically enlarged thoracic lymphadenopathy. Visualized upper abdomen is unremarkable. Mild thora cic spondylosis with chronic mild anterior wedging of a few mid thoracic vertebral bodies. IMPRESSION: 1. No pulmonary embolism. 2. Small right pleural effusion. 3. Linear bands of discoid atelectasis in the bilateral lower lungs with thicker band of consolidatio n which could represent additional atelectasis or pneumonia in the right middle lobe. 4. Cardiomegaly. 5. 6 mm nodule in the left lower lobe. Recommend follow-up low-dose noncontrast chest CT in 6-12 laureano hs. Reviewed, dictated and finalized at location A. IMPRESSION: 1. No pulmonary embolism. 2. Small right pleural effusion. 3. Linear bands of discoid atelectasis in the bilateral lower lungs with thicke r band of consolidation which could represent additional atelectasis or pneumon ia in the right middle lobe. 4. Cardiomegaly. 5. 6 mm nodule in the left lower lobe. Recommend follow-up low-dose noncontrast chest CT in 6-12 months.
--- NOTE | ~2023-10-02 | US_ITS ---
EXAMINATION: US abdomen complete DATE: 10/03/2023 18:57 INDICATION: Distension TECHNIQUE: Multiple grayscale and Doppler ultrasound images of the abdomen were obtained. COMPARISON: None available. FINDINGS: Exam limited by body habitus. The visualized portions of the pancreas are normal. The liver is enlarged, with normal echogenicity and echotexture. No surface nodularity. Normal hepatopetal iris w in the main portal vein. The gallbladder is partially visualized, wall thickness 3.5 mm. The common bile duct is not confidently visualized. There was no sonographic Bateman sign. The visualized portio ns of the aorta and inferior vena cava are normal. The right kidney measures 12.7 x 5.1 x 6.3 cm. The left kidney measures 12.1 x 5.8 x 6.2 cm. The kidn eys demonstrate normal parenchymal echogenicity. There is no hydronephrosis. The spleen is normal in appearance and measures 9.3 cm. IMPRESSION: Hepatomegaly. Nonspecific gallbladder wall thickening. Partial visualization of the gallbladder. Comm on bile duct was not visualized. Reviewed, dictated and finalized at location K. IMPRESSION: Hepatomegaly. Nonspecific gallbladder wall thickening. Partial visualization of the gallbladder. Common bile duct was not visualized.
--- NOTE | 2023-10-02 22:59 | ECG_ITS ---
Measurements Intervals [place] Rate: 109 P: 66 AL: 142 QRS: 82 QRSD: 88 T: -10 QT: 333 QTc: 449 Interpretive Statements SINUS TACHYCARDIA LEFT ATRIAL ENLARGEMENT DELAYED PRECORDIAL R/S TRANSITION NONSPECIFIC ST-T WAVE ABNORMALITY- INFERIOR LEADS BASELINE ARTIFACT- I, II, III, AVR, AVL, V1, V4-V6 ABNORMAL ECG COMPARED TO ECG 09/10/2019 13:41:26 SINUS TACHYCARDIA NOW PRESENT Electronically Signed On 10-03-2023 7:42:39 CDT by Jaswant Washington D.O.
[2023-10-02 23:00] VITALS: BP 195/126; PULSE 115; RESP 24; TEMP 37.2; O2SAT 98
[2023-10-02 23:15] LABS: Basophils Absolute Auto 0.1 K/mm3 (0.0-0.1); Basophils Percent Auto 0.4 % (0.2-1.2); Eosinophils Absolute Auto 0.1 K/mm3 (0-0.3); Eosinophils Percent Auto 0.4 % (0-4.4); Hematocrit 55.9 % (42.0-52.0); Hemoglobin 17.5 g/dL (14.0-18.0); Immature Granulocyte Absolute 0.16 K/mm3 (0.00-0.031); Immature Granulocyte Percent A 1.2 % (0-0.5); Lymphocytes Absolute Auto 2.66 K/mm3 (0.9-3.2); Lymphocytes Percent Auto 19.7 % (18.3-44.2); Mean Corpuscular HGB Conc 31.3 g/dl (32-36); Mean Corpuscular Volume 95.7 fl (80-100); Mean Platelet Volume 9.3 fl (7.4-10.4); Monocytes Absolute Auto 1.6 K/mm3 (0.1-0.6); Monocytes Percent Auto 11.5 % (2.6-8.5); Neutrophils Percent Auto 66.8 % (45.5-73.1); Platelet Count Result 315 k/mm3 (150-375); Red Blood Count 5.84 M/mm3 (4.6-6.20); Red Cell Distribution Width 13.8 % (11.5-14.5); White Blood Count 13.5 K/mm3 (4.5-10.0)
[2023-10-02 23:25] LABS: Alanine Aminotransferase 60 U/L (6-50); Albumin Level 4.3 g/dL (3.5-5.1); Alkaline Phosphatase 88 U/L (38-126); Anion Gap 4 mmol/L (8-16); Aspartate Amino Transferase 57 U/L (17-59); Bilirubin,Total 1.6 mg/dL (0.2-1.3); Blood Urea Nitrogen 25 mg/dL (9-20); Calcium 8.7 mg/dL (8.4-10.2); Carbon Dioxide 32 mmol/L (22-30); Chloride 102 mmol/L (98-107); Estimated CRCL calculation 117 ml/min; Estimated Glomerular Filt Rate > 60; Glucose 102 mg/dL (65-110); Potassium 4.1 mmol/L (3.4-5.0); Sodium 138 mmol/L (137-145)
[2023-10-03] VITALS (44 sets, daily range): BP systolic 150–189; BP diastolic 77–143; PULSE 78–106; RESP 12–34; TEMP 35.7–36.2; O2SAT 90–100
[2023-10-03 00:14] LABS: NT Pro B Type Natriuretic Pept 4680 pg/mL (19.9-100)
[2023-10-03] MEDS: FUROSEMIDE INJ 40 MG/4 ML VIAL IV PUSH (01:29)
--- NOTE | 2023-10-03 01:37 | PC.NURSE ---
pt ambulatory with steady gait to restroom, no distress noted.
--- NOTE | 2023-10-03 01:53 | ECG_ITS ---
Measurements Intervals [place] Rate: 104 P: 77 [place]: 124 QRS: 96 QRSD: 89 T: 17 QT: 345 QTc: 454 Interpretive Statements SINUS TACHYCARDIA RIGHT AXIS DEVIATION LEFT ATRIAL ENLARGEMENT DELAYED PRECORDIAL R/S TRANSITION NONSPECIFIC T-WAVE ABNORMALITY- INF/LAT LEADS BASELINE ARTIFACT- I, II, III, AVR, AVL, V1-V3, V5-V6 BORDERLINE ECG COMPARED TO ECG 10/02/2023 23:09:35 NO SIGNIFICANT CHANGES Electronically Signed On 10-03-2023 7:47:13 CDT by Jaswant Washington D.O.
--- NOTE | 2023-10-03 02:40 | ED.SOB ---
HPI - SOB/Dyspnea General Chief Complaint: Shortness of Breath/Dyspnea Stated Complaint: SOB Time Seen by Provider: 10/02/23 23:42 History of Present Illness HPI Narrative: This is a 43-year-old male, with history hypertension, who presents to the emergency department complaining of progressive shortness of breath. The patient states he was seen recently in urgent care diagnosed him with a viral upper respiratory infection and started on prednisone. Since taking the prednisone, he states he has noticed significant swelling of the abdomen and legs and worsening of shortness of breath. He denies associated chest pain, loss of consciousness cough. He has no other complaints today. Related Data Home Medications Medication Instructions Recorded Confirmed No Home Medications 10/03/23 10/03/23 Allergies Allergy/AdvReac Type Severity Reaction Status Date / Time nut - unspecified Allergy Unknown Unknown Verified 07/16/22 02:03 Penicillins Allergy Unknown Unknown Verified 07/16/22 02:03 BP med Allergy Mild Rash Uncoded 07/16/22 02:03 Review of Systems Review of Systems: CONSTITUTIONAL: Denies fever, chills, or sweats. CARDIOVASCULAR: edema of the abdominal wall and bilateral thigh Denies chest pain, palpitations RESPIRATORY: Dyspnea Denies cough GASTROINTESTINAL: Denies abdominal pain, nausea, vomiting, or diarrhea. GENITOURINARY: Denies dysuria or hematuria. SKIN: Denies rash or itching. MUSCULOSKELETAL: Denies back pain, joint pain, or myalgia. NEUROLOGIC: Denies headache, numbness, dizziness, or weakness. PSYCHIATRIC: Denies anxiety or depression. [facility] Past Medical History Medical History Hypertension Surgical History Surgical History No pertinent past surgical history Family History Family History (Updated 10/03/23 @ 04:30 by Flakita De Luna RN) Sibling Hypertension Congestive heart failure Cerebrovascular accident Mother Hypertension Social History Social History Social History: The patient lives with his . He does not have a durable power business attorney. He is a full code. He has no children. 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 He was supposed to start work at a new job tomorrow but has not been able to make it. He smokes marijuana on a daily basis. He smokes cigarettes a half pack cigarettes a day. Smoking packs per day: 0.5 Smoking cigarettes per day: 10.0 Years smoked: 30 Smoking pack-years: 15.00 Smoking status: Current every day smoker Tobacco type: cigarettes Additional smoking assessment comments: Daily marijuana Alcohol intake: current Drinks per week: 2 Alcohol use details: social Substance use: current Substance use type: marijuana and other Other substance usage details: Ecstacy for nightmares Last use: Last week Do You Feel Safe in your Home?: Yes Lack of Transportation: No Lack of Food: Never True Current Housing: I Have Housing Concerned About Future Housing: No Difficulty Paying Gas/Electric Bills: No Difficulty Paying for Meds: No Currently Unemployed: No Education: High School Diploma/GED Difficulty w/ Childcare or Family Care: No Living arrangements: with family Occupation/Education: unemployed 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 Gender identity (if verbalized by the patient): Male Spiritual care concerns: No Agree to blood products: No Exam Narrative: GENERAL: Well-developed, well-nourished, and in no acute distress. HEAD: Normocephalic, atraumatic. EYES: PERRLA and EOMI. NECK: Supple. JVD to the angle of jaw CHEST: faint rales noted in the bilateral lower lung sanchez. No respiratory distress. No wheezes or rhonchi HEART: Regular rate and rhythm. No murmur heard. Normal
[2023-10-03 02:52] LABS: Troponin I 0.076 ng/mL (0.000-0.034)
--- NOTE | 2023-10-03 03:11 | PC.NURSE ---
Pt denies current CP. ERP notified and Nitro held at this time.
--- NOTE | 2023-10-03 03:12 | PM.IMHP ---
H&P: HPI History of Present Illness Date/Time: 10/03/23 03:12 Chief Complaint: SOB Narrative: THIS IS A 43-YEAR-OLD MALE WITH PAST MEDICAL HISTORY SIGNIFICANT FOR TOBACCO DEPENDENCE, HYPERTENSION, PATIENT PRESENTS TO THE EMERGENCY ROOM DUE TO 2 MONTHS OF SHORTNESS OF BREATH HAD BEEN TO URGENT CARE AND PRESCRIBED PREDNISONE HOWEVER DID NOT IMPROVE CONTINUE TO WORSEN UNABLE TO SLEEP AT NIGHTTIME PATIENT COMPLAINS OF NIGHTMARES TAKES ECSTASIS TO HELP WITH SLEEP. DENIES ANY CHEST PAIN, DENIES PALPITATIONS HAS PND AND ORTHOPNEA, PATIENT DENIES ANY FEVERS, RIGORS, CHILLS, COUGH OR SPUTUM PRODUCTION. NO LIGHTHEADEDNESS, NO DIZZINESS NO NEAR-SYNCOPE OR SYNCOPE. PATIENT SMOKES 1 PACK OF CIGARETTES A DAY TO 1 PACK EVERY 2 DAYS HAS BEEN OFF OF HIS HYPERTENSION MEDS FOR ROUGHLY 2 MONTHS. PATIENT STATES HAS SIGNIFICANT SOCIAL STRESSORS. PRELIMINARY WORKUP WAS SIGNIFICANT FOR BLOOD PRESSURE UPON PRESENTATION TO EMERGENCY ROOM 195/126 BEARING NATRIURETIC PEPTIDE WAS 4680. XR chest 2V 10/02/2023 23:55 Indication: Shortness of breath Procedure: PA and lateral views of the chest Comparison: 09/10/2019 Findings: Cardiomegaly. Bibasilar infiltrates may represent atelectasis or developing pneumonia. No pleural effusion or pneumothorax. No acute osseous abnormality. Impression: 1: Bibasilar infiltrates which may represent atelectasis or developing pneumonia. 2: Cardiomegaly. EKG Rate 109 SC 142 QRSd 88 QT 333 QTc 449 --Collins-- P 66 QRS 82 T -10 SINUS TACHYCARDIA LEFT ATRIAL ENLARGEMENT [-0.15mV P-WAVE IN V1/V2] NONSPECIFIC T-WAVE ABNORMALITY COMPARED TO ECG 09/10/2019 13:41:26 SINUS TACHYCARDIA NOW PRESENT Review of Systems Review of Systems: SHORTNESS OF BREATH, INCREASED ABDOMINAL GIRTH, PND, ORTHOPNEA Constitutional: Constitutional: Denies chills, Denies fever(s), Denies weakness and Reports other ( DECREASED STAMINA) Eyes: Eyes: Denies change in vision ENT: Denies dysphagia, Denies vertigo, Denies dizziness and Denies odynophagia Cardiovascular: Cardiovascular: Denies chest pain, Denies irregular heart rhythm, Reports leg edema, Denies radiating jaw, neck or arm pain, Denies palpitations, Reports dyspnea on exertion, Reports orthopnea and Reports paroxysmal nocturnal dyspnea Respiratory: Respiratory: Denies cough and Denies excessive phlegm production Gastrointestinal: Gastrointestinal: Denies abdominal pain, Denies nausea, Denies vomiting and Reports other ( INCREASED ABDOMINAL GIRTH) Genitourinary: Genitourinary: Denies dysuria Musculoskeletal: Musculoskeletal: Denies arthralgias and Denies muscle weakness Integumentary/Breasts: Skin/Breast: Denies rash Neurologic: Denies focal weakness and Denies Sensory deficit (Neuro) Psychiatric: Psychiatric: Reports no additional psychiatric complaints and Reports as per HPI Endocrine: Endocrine: Denies cold intolerance, Denies fatigue, Denies flushing, Denies heat intolerance, Denies polyphagia, Denies polydipsia, Denies polyuria and Denies palpitations Hematologic/Lymphatic: Hematologic/Lymphatic: Reports no additional hematologic/lymphatic complaints and Reports as per HPI Allergic/Immunologic: Allergic/Immunologic: Reports no additional allergic/immunologic complaints and Reports as per HPI PMFSH Past Medical History Medical History (Updated 10/03/23 @ 21:35 by Sonam Arias MD) Elevated troponin Hypertension Surgical History Surgical History No pertinent past surgical history Family History Family History Sibling Hypertension Congestive heart failure Cerebrovascular accident Mother Hypertension Social History Social History Social History: The patient lives with his . He does not have a durable power mergers and acquisitions attorney. He is a full code. He has no children. He was working for [employer]
--- NOTE | 2023-10-03 04:02 | ADMGEN ---
This patient, Bruno Rodriguez, was admitted to IMU Room 201-01. Patient/family oriented to hospital policies and general routines including ID bracelet, bed and alarms, visiting hours, pain management, procedures, bathroom and other care routines, personal items, smoking policy, room service/diet, and visiting hours. Information on how to activate the Rapid Response Team has been discussed. Patient/Family are encouraged to report perceived risks to care and to ask questions if they do not understand what they are told or what they should do.
[2023-10-03] MEDS: IPRATROPIUM 0.5 MG/ALBUTEROL SULFATE 2.5 MG AMPUL.NEB 3 ML INHALATION ×4 (04:50→20:10)
[2023-10-03 07:02] LABS: Troponin I 0.094 ng/mL (0.000-0.034)
[2023-10-03] MEDS: hydrALAZINE HCL 20 MG/ML VIAL 10 MG IV PUSH (09:24)
[2023-10-03 11:35] LABS: Troponin I 0.085 ng/mL (0.000-0.034)
--- NOTE | 2023-10-03 12:22 | PM.CNCAR ---
Assessment and Plan Assessment and plan (1) Acute congestive heart failure: Code(s): I50.9 - Heart failure, unspecified Status: Acute Assessment and Plan: Patient likely has combined systolic and diastolic heart failure from long-standing history of marked hypertension/hypertensive heart disease with heart failure. 2D echocardiogram with Doppler will be ordered and reviewed. Likely has some degree of sleep apnea also will check an apnea link. Start carvedilol 6.25 mg p.o. b.i.d.., losartan 25 mg p.o. daily. Will add to this regimen being on the above test results. May transition to Entresto from ARB. Furosemide 40 mg IV daily. (2) Tobacco dependence: Code(s): F17.200 - Nicotine dependence, unspecified, uncomplicated Status: Acute Assessment and Plan: Tobacco use counseling was performed (3) Uncontrolled hypertension: Code(s): I10 - Essential (primary) hypertension Status: Acute (4) Polysubstance use disorder: Code(s): F19.90 - Other psychoactive substance use, unspecified, uncomplicated Status: Acute Assessment and Plan: Including use of ecstasy and marijuana Substance use counseling performed (5) Elevated troponin: Code(s): R79.89 - Other specified abnormal findings of blood chemistry Status: Acute Assessment and Plan: Aspirin 81 mg p.o. daily. Elevated troponins likely related to severe, marked hypertension (6) Nonsustained ventricular tachycardia: Code(s): I47.29 - Other ventricular tachycardia Status: Acute Assessment and Plan: Check a BMP and a Mag. Echo pending. History of Present Illness History of Present Illness Consult date/time: 10/03/23 12:23 Requesting physician: Nilo Hess MD Consult reason: congestive heart failure Reason For Visit: New onset CHF Narrative: Reason for consultation: CHF, shortness of breath Date of service 10/03/2023 Requesting provider: Dr. Hess History patient 43-year-old male who has history of hypertension. He sporadically takes medications for it. He does not have a primary care provider. He has been progressively more short of breath x1 month. He did go to urgent care and received prednisone. He thought that his shortness of breath may been related to asthma. Prednisone did not provide any relief of his dyspnea. He has had progressively worsening shortness of breath to the point that he has had paroxysmal nocturnal dyspnea x1 week. Worsening edema and abdominal distension also x1 week. He came to the hospital for further workup and evaluation. Patient was noted to have marked hypertension upon presentation and heart failure. Is admitted for further workup evaluation treatment. He has undergone some diuresis and is feeling a little better. He however is pain having some runs of nonsustained ventricular tachycardia. He denies any chest pain, syncope, presyncope, orthopnea palpitations. Review of Systems Review of Systems: All systems reviewed & are unremarkable except as noted in HPI and below Constitutional: Constitutional: Denies body ache(s) Eyes: Eyes: Denies blurry vision ENT: Reports Normal hearing present Cardiovascular: Cardiovascular: Denies chest pain Respiratory: Respiratory: Reports dyspnea Gastrointestinal: Gastrointestinal: Denies abdominal pain and Reports bloating Genitourinary: Genitourinary: Denies hematuria Musculoskeletal: Musculoskeletal: Denies back pain Integumentary/Breasts: Skin/Breast: Denies dry skin Neurologic: Denies Abnormal speech present Psychiatric: Psychiatric: Denies anxiety Endocrine: Endocrine: Denies excessive sweating Hematologic/Lymphatic: Hematologic/Lymphatic: Denies easy bleeding Allergic/Immunologic: Allergic/Immunologic: Denies GI upset with certain foods PMFSH Past Medical History Medical History Hypertension Surgical
[2023-10-03 13:29] LABS: Anion Gap 5 mmol/L (8-16); Blood Urea Nitrogen 22 mg/dL (9-20); Calcium 8.6 mg/dL (8.4-10.2); Carbon Dioxide 31 mmol/L (22-30); Chloride 100 mmol/L (98-107); Estimated CRCL calculation 136 ml/min; Estimated Glomerular Filt Rate > 60; Glucose 123 mg/dL (65-110); Potassium 3.9 mmol/L (3.4-5.0); Sodium 136 mmol/L (137-145)
[2023-10-03] MEDS: LOSARTAN POTASSIUM 25 MG TABLET PO (14:02)
--- NOTE | 2023-10-03 15:59 | PM.IMPN ---
Progress Note: A&P Assessment and Plan (1) Acute congestive heart failure: Code(s): I50.9 - Heart failure, unspecified Status: Acute (2) Uncontrolled hypertension: Code(s): I10 - Essential (primary) hypertension Status: Acute (3) Obesity (BMI 35.0-39.9 without comorbidity): Code(s): E66.9 - Obesity, unspecified Status: Acute (4) Tobacco dependence: Code(s): F17.200 - Nicotine dependence, unspecified, uncomplicated Status: Acute Plan 43-year-old male with history of chronic hypertension presented with progressive shortness of breath with past month. He was recently seen in the Urgent Care was diagnosed with URI and was prescribed prednisone. Since taking the prednisone started noticing significant swelling in the abdomen and legs with worsening of the shortness of breath. No chest pain cough. On ED evaluation his vitals with tachycardia and hypertension. WBC 13.5 hemoglobin 17.5 creatinine of 0.4 on troponin was 0.076 with serial troponin 0.094-0.085. More less flat. BNP elevated at 4680. EKG with sinus tachycardia with no acute ST-T changes. Chest x-ray with bibasilar infiltrates which may represent atelectasis or developing pneumonia with cardiomegaly. Cardiology has been consulted. Plan for echocardiogram. Patient received 1 dose of Lasix in the ER. Continue diuresis blood pressure control. DVT prophylaxis with Lovenox. Possible sleep apnea. Check ApneaLink Elevated troponin Subjective Date/time seen: 10/03/23 15:59 Interval history: 43-year-old male with history of chronic hypertension presented with progressive shortness of breath with past month. He was recently seen in the Urgent Care was diagnosed with URI and was prescribed prednisone. Since taking the prednisone started noticing significant swelling in the abdomen and legs with worsening of the shortness of breath. No chest pain cough. On ED evaluation his vitals with tachycardia and hypertension. WBC 13.5 hemoglobin 17.5 creatinine of 0.4 on troponin was 0.076 with serial troponin 0.094-0.085. More less flat. BNP elevated at 4680. EKG with sinus tachycardia with no acute ST-T changes. Chest x-ray with bibasilar infiltrates which may represent atelectasis or developing pneumonia with cardiomegaly. Cardiology has been consulted. Plan for echocardiogram. Patient received 1 dose of Lasix in the ER. Continue diuresis blood pressure control. DVT prophylaxis with Lovenox. Possible sleep apnea. Check ApneaLink Elevated troponin Review of Systems Review of Systems: All systems reviewed & are unremarkable except as noted in HPI and below Exam Narrative: GENERAL: Well-developed, well-nourished, and in no acute distress. HEAD: Normocephalic, atraumatic. EYES: PERRLA and EOMI. NECK: Supple.? CHEST:? Diminished breath sounds bilaterally No respiratory distress.? No wheezes or rhonchi HEART: Regular rate and rhythm.? No murmur heard.? Normal peripheral pulses. ABDOMEN: Soft, nontender, nondistended, normal active bowel sounds. Trace edema of the lower abdomen here abdominal wall and proximal thighs EXTREMITIES: Normal range of motion.? No edema of the bilateral distal leg. SKIN: Warm, dry, no rash. NEURO: Alert and oriented x3. No focal deficit. Moving all 4 limbs spontaneously PSYCH: Normal mood and affect. Objective Data Vital Signs Vital Signs: Vital Signs - 24 hr 10/02/23 23:00 10/03/23 01:32 10/03/23 01:33 Temperature 98.9 F Pulse Rate 115 H 102 H Respiratory Rate 24 H Blood Pressure 195/126 H Pulse Oximetry 98 Oxygen Delivery Room Air Room Air 10/03/23 01:34 10/03/23 01:31 10/03/23 01:32 Temperature Pulse Rate 100 106 H 103 H Respiratory Rate 18 19 16 Blood Pressure 162/135 H 162/135 H Pulse Oximetry 100 90 94 Oxygen Delivery 10/03/23 01:45 10/03/23 02:00 10/03/23 02:05 Temperature Pulse Rate 101 H 105 H 102 H Respiratory Rate 34 H 15 15 Blood Pressure
[2023-10-03] MEDS: carvediloL 6.25 MG TABLET PO (21:34)
[2023-10-04] VITALS (28 sets, daily range): BP systolic 134–175; BP diastolic 76–121; PULSE 69–101; RESP 16–20; TEMP 36.4–36.9; O2SAT 93–100
--- NOTE | 2023-10-04 | ECHO_ITS ---
Patient Info Name: Bruno Rodriguez Age: 43 years : 1980 Gender: Male Ht: 73 in Wt: 281 lbs BSA: 2.61 m2 HR: 82 bpm BP: 161 / 118 mmHg Heart Rhythm: Sinus Rhythm Technical Quality: Fair Exam Date: 10/04/2023 9:49 AM Exam Location: Echo Lab Patient Status: Outpatient Admit Date: 10/03/2023 Staff Ordering Physician: Sonam Arias MD Lens Blocker: Jud Masters RDCS Attending Provider: Sonam Arias MD Referring Physician: Juana VALENCIA; Exam Type: CA echo dop color flow w con Study Info Indications - chf Complete two-dimensional, color flow and Doppler transthoracic echocardiogram is performed with contrast to opacify the left ventricle and to improve the deliniation of the left ventricle endocardial borders. Contrast/Agitated Saline Contrast/Ag. Saline: Definity Amount: 2.00 ml Administered By: Jud Masters RDCS Existing IV Access: Yes IV Access Condition: patent with no signs of infiltration Summary 1. Left ventricular chamber dimension is moderately enlarged. 2. Left ventricular systolic function is severely reduced, estimated at 30-35%. 3. There is mildly increased left ventricular wall thickness. 4. The left ventricular diastolic function is grade II diastolic dysfunction. 5. Left atrial chamber dimension is mildly enlarged. 6. There is mild mitral valve regurgitation. 7. There is mild tricuspid valve regurgitation. 8. There is small pericardial effusion. Left Ventricle Left ventricular chamber dimension is moderately enlarged. Left ventricular systolic function is severely reduced, estimated at 30-35%. There is mildly increased left ventricular wall thickness. The left ventricular diastolic function is grade II diastolic dysfunction. Right Ventricle Right ventricular chamber dimension is normal. Right ventricular systolic function is normal. Left Atria Left atrial chamber dimension is mildly enlarged. Right Atria Right atrial chamber dimension is normal. Atrial Septum Intact interatrial septum visualized by color flow imaging. Aortic Valve The aortic valve is trileaflet. There is mild aortic valve sclerosis. There is no aortic valve stenosis. There is trace aortic valve regurgitation. Pulmonic Valve The pulmonic valve is normal. There is no pulmonic valve stenosis. There is trace pulmonic regurgitation. Mitral Valve The mitral valve has normal leaflets. There is no mitral valve stenosis. There is mild mitral valve regurgitation. Tricuspid Valve The tricuspid valve leaflets are normal. There is no significant tricuspid valve stenosis. There is mild tricuspid valve regurgitation. No pulmonary hypertension, estimated pulmonary arterial systolic pressure is 30 mmHg. Pericardium/Pleural The pericardium appears normal. There is small pericardial effusion. Inferior Vena Cava Dilated inferior vena cava with <50% collapse upon inspiration consistent with elevated right atrial pressure, 10 mmHg. Aorta The aortic root size at the sinus of Valsalva is normal. Left Ventricular Outflow Tract Name Value Normal LVOT 2D LVOT Diameter 2.01 cm LVOT Doppler LVOT Peak Gradient 3 m
[2023-10-04] MEDS: IPRATROPIUM 0.5 MG/ALBUTEROL SULFATE 2.5 MG AMPUL.NEB 3 ML INHALATION ×4 (01:21→20:15)
--- NOTE | 2023-10-04 01:44 | PCRCNOTE ---
Apnea link ended at this time. Patient out of bed stating he cant breath. Breathing treatment administered, pt states he does not sleep at night he has bad night terrors, he sleeps during the day. RN aware.
[2023-10-04 05:09] LABS: Basophils Absolute Auto 0.1 K/mm3 (0.0-0.1); Basophils Percent Auto 0.7 % (0.2-1.2); Eosinophils Absolute Auto 0.2 K/mm3 (0-0.3); Eosinophils Percent Auto 1.9 % (0-4.4); Hematocrit 47.1 % (42.0-52.0); Hemoglobin 15.2 g/dL (14.0-18.0); Immature Granulocyte Absolute 0.06 K/mm3 (0.00-0.031); Immature Granulocyte Percent A 0.6 % (0-0.5); Lymphocytes Absolute Auto 2.01 K/mm3 (0.9-3.2); Lymphocytes Percent Auto 20.9 % (18.3-44.2); Mean Corpuscular HGB Conc 32.3 g/dl (32-36); Mean Corpuscular Hemoglobin 30.2 pg (26-34); Mean Corpuscular Volume 93.5 fl (80-100); Mean Platelet Volume 10.1 fl (7.4-10.4); Monocytes Percent Auto 10.1 % (2.6-8.5); Neutrophils Absolute Auto 6.3 K/mm3 (1.3-6.7); Neutrophils Percent Auto 65.8 % (45.5-73.1); Platelet Count Result 268 k/mm3 (150-375); Red Blood Count 5.04 M/mm3 (4.6-6.20); Red Cell Distribution Width 13.3 % (11.5-14.5); White Blood Count 9.6 K/mm3 (4.5-10.0)
[2023-10-04 05:21] LABS: Anion Gap 3 mmol/L (8-16); Blood Urea Nitrogen 19 mg/dL (9-20); Calcium 8.4 mg/dL (8.4-10.2); Carbon Dioxide 32 mmol/L (22-30); Chloride 101 mmol/L (98-107); Estimated CRCL calculation 153 ml/min; Estimated Glomerular Filt Rate > 60; Glucose 107 mg/dL (65-110); Magnesium 2.1 mg/dL (1.6-2.3); Potassium 3.6 mmol/L (3.4-5.0); Sodium 136 mmol/L (137-145)
[2023-10-04] MEDS: ENOXAPARIN 40 MG/0.4 ML SYRINGE SUB-Q (07:36)
[2023-10-04] MEDS: LOSARTAN POTASSIUM 25 MG TABLET PO (07:37)
[2023-10-04] MEDS: hydrALAZINE HCL 20 MG/ML VIAL 10 MG IV PUSH (07:37)
[2023-10-04] MEDS: FUROSEMIDE INJ 40 MG/4 ML VIAL IV PUSH (07:37)
[2023-10-04] MEDS: carvediloL 6.25 MG TABLET PO (07:37)
[2023-10-04] MEDS: PERFLUTREN LIPID MICROSPHERES 1.5 ML VIAL DILUTED TO 10 ML TOTAL VOLUME IV PUSH (10:15)
--- NOTE | 2023-10-04 10:34 | PM.PNCARD ---
Progress Note: A&P Assessment and Plan (1) Acute congestive heart failure: Code(s): I50.9 - Heart failure, unspecified Status: Acute Assessment and Plan: Patient likely has combined systolic and diastolic heart failure from long-standing history of marked hypertension/hypertensive heart disease with heart failure. 2D echocardiogram with Doppler will be ordered and reviewed. Will increase carvedilol to 12.5 mg p.o. b.i.d.. Continue losartan and up titrate as able. Will add to this regimen being on the above test results. May transition to Entresto from [facility], add spironolactone. continue IV furosemide (2) Tobacco dependence: Code(s): F17.200 - Nicotine dependence, unspecified, uncomplicated Status: Acute Assessment and Plan: Tobacco use counseling was performed (3) Uncontrolled hypertension: Code(s): I10 - Essential (primary) hypertension Status: Acute Assessment and Plan: Still elevated (4) Polysubstance use disorder: Code(s): F19.90 - Other psychoactive substance use, unspecified, uncomplicated Status: Acute Assessment and Plan: Including use of ecstasy and marijuana Substance use counseling performed (5) Elevated troponin: Code(s): R79.89 - Other specified abnormal findings of blood chemistry Status: Acute Assessment and Plan: Aspirin 81 mg p.o. daily. Elevated troponins likely related to severe, marked hypertension (6) Nonsustained ventricular tachycardia: Code(s): I47.29 - Other ventricular tachycardia Status: Acute Assessment and Plan: Frequent episodes of nonsustained ventricular tachycardia. Potassium chloride 40 mEq p.o. x1. Up titrating carvedilol. Probably needs ischemic evaluation via angiogram especially given his frequent episodes of fast nonsustained ventricular tachycardia as well as heart failure but will await the echocardiogram results Subjective Date/time seen: 10/04/23 10:34 Interval history: 43-year-old male with history of chronic hypertension presented with progressive shortness of breath with past month. Date of service 10/04/2023: Still does not feel great. Still has abdominal swelling. No chest pain. Breathing is a little better. Review of Systems Review of Systems: All systems reviewed & are unremarkable except as noted in HPI and below Constitutional: Constitutional: Denies body ache(s) and Denies excessive sweating Eyes: Eyes: Denies blurry vision ENT: Reports Normal hearing present Cardiovascular: Cardiovascular: Denies chest pain and Reports dyspnea Respiratory: Respiratory: Reports dyspnea Gastrointestinal: Gastrointestinal: Denies abdominal pain and Reports bloating Genitourinary: Genitourinary: Denies hematuria Musculoskeletal: Musculoskeletal: Denies back pain Integumentary/Breasts: Skin/Breast: Denies dry skin Neurologic: Reports Normal hearing present and Denies Abnormal speech present Psychiatric: Psychiatric: Denies anxiety Endocrine: Endocrine: Denies excessive sweating Hematologic/Lymphatic: Hematologic/Lymphatic: Denies easy bleeding Allergic/Immunologic: Allergic/Immunologic: Denies GI upset with certain foods Exam Narrative: Awake alert oriented appears to be in no acute distress at present. Appears stated age Const: General: comfortable and no acute distress HENMT: Face/Nose/Sinus: Normal nares present Mouth: Yes moist mucous membranes Eyes: General: appearance normal, both eyes and all related structures Sclera: sclerae normal Neck: Neck: supple and no JVD Carotids: no bruits Chest: Other: No reproducible chest wall pain to palpation Resp: Effort & Inspection: normal respiratory effort Auscultation: clear to auscultation bilaterally Cardio: Rate: regular rate Rhythm: regular rhythm Heart sounds: no murmurs GI: Inspection: distended Auscultation: normal bowel sounds Skin: General skin exam:
[2023-10-04] MEDS: POTASSIUM CHLORIDE 20 MEQ ER TABLET 40 MEQ PO (11:49)
--- NOTE | 2023-10-04 12:44 | IVDEFINITY ---
Prior to administration of IV Definity the patient was educated on the risks and benefits of the imaging enhancing agent including potential adverse side effects. The patient verbalized understanding. Allergies were verified. No exclusion criteria were identified and at least one of the following inclusion criteria were met: 1) physician request, 2) patient technically difficult to image (per the [place] [employer] guidelines of two or more segments not discernable within the apical view), or 3) questionable left ventricular function. ?
--- NOTE | 2023-10-04 14:43 | PM.IMPN ---
Progress Note: A&P Assessment and Plan (1) Acute congestive heart failure: Code(s): I50.9 - Heart failure, unspecified Status: Acute (2) Uncontrolled hypertension: Code(s): I10 - Essential (primary) hypertension Status: Acute (3) Obesity (BMI 35.0-39.9 without comorbidity): Code(s): E66.9 - Obesity, unspecified Status: Acute (4) Tobacco dependence: Code(s): F17.200 - Nicotine dependence, unspecified, uncomplicated Status: Acute Plan 43-year-old male with history of chronic hypertension presented with progressive shortness of breath with past month. He was recently seen in the Urgent Care was diagnosed with URI and was prescribed prednisone. Since taking the prednisone started noticing significant swelling in the abdomen and legs with worsening of the shortness of breath. No chest pain cough. On ED evaluation his vitals with tachycardia and hypertension. WBC 13.5 hemoglobin 17.5 creatinine of 0.4 on troponin was 0.076 with serial troponin 0.094-0.085. More less flat. BNP elevated at 4680. EKG with sinus tachycardia with no acute ST-T changes. Chest x-ray with bibasilar infiltrates which may represent atelectasis or developing pneumonia with cardiomegaly. Cardiology has been consulted. Echocardiogram performed showed severely reduced ejection fraction 30-35% grade 2 diastolic dysfunction. Blood pressure control being adjusted medication per Cardiology continue diuresis with Lasix 40 mg daily as ordered. Polysubstance use disorder including use of ecstasy and marijuana Frequent and SVT replace electrolytes. With cardiomyopathy noted on echo likely needs ischemic evaluation. Await cardiac recommendations. DVT prophylaxis with Lovenox. Possible sleep apnea. Apnea link could not be completed appropriately. Elevated troponin with flat trend Subjective Date/time seen: 10/04/23 14:43 Interval history: 43-year-old male with history of chronic hypertension presented with progressive shortness of breath with past month. He was recently seen in the Urgent Care was diagnosed with URI and was prescribed prednisone. Since taking the prednisone started noticing significant swelling in the abdomen and legs with worsening of the shortness of breath. No chest pain cough. On ED evaluation his vitals with tachycardia and hypertension. WBC 13.5 hemoglobin 17.5 creatinine of 0.4 on troponin was 0.076 with serial troponin 0.094-0.085. More less flat. BNP elevated at 4680. EKG with sinus tachycardia with no acute ST-T changes. Chest x-ray with bibasilar infiltrates which may represent atelectasis or developing pneumonia with cardiomegaly. Cardiology has been consulted. Plan for echocardiogram. Patient received 1 dose of Lasix in the ER. Continue diuresis blood pressure control. DVT prophylaxis with Lovenox. Possible sleep apnea. Check ApneaLink Elevated troponin 10/04/2023: No overnight events apnea link test reviewed he states he could not sleep at night. Review of Systems Review of Systems: All systems reviewed & are unremarkable except as noted in HPI and below Exam Narrative: GENERAL: Well-developed, well-nourished, and in no acute distress. HEAD: Normocephalic, atraumatic. EYES: PERRLA and EOMI. NECK: Supple.? CHEST:? Diminished breath sounds bilaterally No respiratory distress.? No wheezes or rhonchi HEART: Regular rate and rhythm.? No murmur heard.? Normal peripheral pulses. ABDOMEN: Soft, nontender, nondistended, normal active bowel sounds. Trace edema of the lower abdomen here abdominal wall and proximal thighs EXTREMITIES: Normal range of motion.? No edema of the bilateral distal leg. SKIN: Warm, dry, no rash. NEURO: Alert and oriented x3. No focal deficit. Moving all 4 limbs spontaneously PSYCH: Normal mood and affect. Objective Data Vital Signs Vital Signs: Vital Signs - 24 hr 10/03/23 15:44 10/03/23 16:00 10/03/23 18:00 Temperature 96.7 F L Pulse Rat
[2023-10-04] MEDS: carvediloL 12.5 MG TABLET PO (20:43)
[2023-10-05] VITALS (27 sets, daily range): BP systolic 137–180; BP diastolic 74–127; PULSE 78–99; RESP 14–20; TEMP 36–36.4; O2SAT 95–98
[2023-10-05] MEDS: IPRATROPIUM 0.5 MG/ALBUTEROL SULFATE 2.5 MG AMPUL.NEB 3 ML INHALATION ×4 (02:51→20:32)
[2023-10-05 05:14] LABS: Basophils Percent Auto 0.5 % (0.2-1.2); Eosinophils Absolute Auto 0.1 K/mm3 (0-0.3); Eosinophils Percent Auto 1.6 % (0-4.4); Hematocrit 51.6 % (42.0-52.0); Hemoglobin 16.2 g/dL (14.0-18.0); Immature Granulocyte Absolute 0.07 K/mm3 (0.00-0.031); Immature Granulocyte Percent A 0.8 % (0-0.5); Lymphocytes Absolute Auto 1.72 K/mm3 (0.9-3.2); Mean Corpuscular HGB Conc 31.4 g/dl (32-36); Mean Corpuscular Hemoglobin 29.9 pg (26-34); Mean Corpuscular Volume 95.4 fl (80-100); Mean Platelet Volume 10.5 fl (7.4-10.4); Monocytes Absolute Auto 0.8 K/mm3 (0.1-0.6); Monocytes Percent Auto 8.9 % (2.6-8.5); Neutrophils Absolute Auto 5.9 K/mm3 (1.3-6.7); Neutrophils Percent Auto 68.2 % (45.5-73.1); Platelet Count Result 251 k/mm3 (150-375); Red Blood Count 5.41 M/mm3 (4.6-6.20); Red Cell Distribution Width 13.8 % (11.5-14.5); White Blood Count 8.6 K/mm3 (4.5-10.0)
[2023-10-05 05:40] LABS: Alanine Aminotransferase 42 U/L (6-50); Albumin Level 3.9 g/dL (3.5-5.1); Alkaline Phosphatase 116 U/L (38-126); Anion Gap 2 mmol/L (8-16); Aspartate Amino Transferase 36 U/L (17-59); Bilirubin,Total 1.3 mg/dL (0.2-1.3); Blood Urea Nitrogen 23 mg/dL (9-20); Calcium 8.5 mg/dL (8.4-10.2); Carbon Dioxide 33 mmol/L (22-30); Chloride 102 mmol/L (98-107); Estimated CRCL calculation 152 ml/min; Estimated Glomerular Filt Rate > 60; Glucose 86 mg/dL (65-110); Magnesium 2.3 mg/dL (1.6-2.3); Potassium 4.1 mmol/L (3.4-5.0); Sodium 137 mmol/L (137-145)
--- NOTE | 2023-10-05 07:51 | PC.NURSE ---
Spoke with Yessi Key, MIXER BLENDER with Cardiology. Pt is made NPO for possible cardiac catheterization today. New order to non-admin Lovenox this AM, pt is allowed to have Coreg, Losartan, and IVP Lasix.
[2023-10-05] MEDS: carvediloL 12.5 MG TABLET PO ×2 (08:20→21:18)
[2023-10-05] MEDS: LOSARTAN POTASSIUM 25 MG TABLET PO (08:20)
[2023-10-05] MEDS: hydrALAZINE HCL 20 MG/ML VIAL 10 MG IV PUSH (08:23)
[2023-10-05] MEDS: FUROSEMIDE INJ 40 MG/4 ML VIAL IV PUSH (10:24)
[2023-10-05] MEDS: SPIRONOLACTONE 25 MG TABLET PO (10:24)
--- NOTE | 2023-10-05 10:58 | PM.PNCARD ---
Progress Note: A&P Assessment and Plan (1) Acute congestive heart failure: Code(s): I50.9 - Heart failure, unspecified Status: Acute Assessment and Plan: Patient has acute systolic heart failure. Echocardiogram shows LVEF 30-35%, grade 2 diastolic dysfunction, mild enlargement of left atrium, mild MR, mild TR, small pericardial effusion. Likely from long-standing history of marked hypertension/hypertensive heart disease, in combination with polysubstance abuse. Continue IV Lasix 40mg once daily for now. Continue Coreg 12.5mg BID. Will stop Losartan and start Entresto. Start Spironolactone. Will plan to add SGLT2 inhibitor tomorrow. Uptitrate heart failure GDMT as tolerated. Will obtain CXR today as patient reporting shortness of breath. Will eventually need cardiac cath to rule out ischemic heart disease, however, will plan for cath once patient is euvolemic. (2) Tobacco dependence: Code(s): F17.200 - Nicotine dependence, unspecified, uncomplicated Status: Acute Assessment and Plan: Tobacco use counseling was performed (3) Uncontrolled hypertension: Code(s): I10 - Essential (primary) hypertension Status: Acute Assessment and Plan: Still elevated, antihypertensive medication changes as noted above. (4) Polysubstance use disorder: Code(s): F19.90 - Other psychoactive substance use, unspecified, uncomplicated Status: Acute Assessment and Plan: Including use of ecstasy and marijuana Substance use counseling performed (5) Elevated troponin: Code(s): R79.89 - Other specified abnormal findings of blood chemistry Status: Acute Assessment and Plan: Aspirin 81 mg p.o. daily. Elevated troponins likely related to severe, marked hypertension (6) Nonsustained ventricular tachycardia: Code(s): I47.29 - Other ventricular tachycardia Status: Acute Assessment and Plan: Frequent episodes of nonsustained ventricular tachycardia. Keep electrolytes optimized. Up titrating Carvedilol. Will eventually need cardiac cath to rule out ischemic heart disease, however, will plan for cath once patient is euvolemic. Subjective Date/time seen: 10/05/23 10:58 Interval history: Reason for visit: Acute systolic heart failure HPI: Patient 43-year-old male who has history of hypertension.? He sporadically takes medications for it.? He does not have a primary care provider.? He has been progressively more short of breath x 1 month.? He did go to urgent care and received prednisone.? He thought that his shortness of breath may been related to asthma.? Prednisone did not provide any relief of his dyspnea.? He has had progressively worsening shortness of breath to the point that he has had paroxysmal nocturnal dyspnea x1 week.? Worsening edema and abdominal distension also x1 week.? He came to the hospital for further workup and evaluation.? Patient was noted to have marked hypertension upon presentation and heart failure.? Is admitted for further workup evaluation treatment.? He has undergone some diuresis and is feeling a little better.? He however is having some runs of nonsustained ventricular tachycardia.? He denies any chest pain, syncope, presyncope, orthopnea palpitations. Date of service 10/03: Still does not feel great.? Still has abdominal swelling.? No chest pain.? Breathing is a little better. Date of service 10/04: Had some shortness of breath this morning. Still with abdominal, scrotal swelling. He is tearful this morning. Review of Systems Review of Systems: All systems reviewed & are unremarkable except as noted in HPI and below (HPI) Exam Const: General: no acute distress HENMT: Mouth: Yes moist mucous membranes Eyes: General: appearance normal, both eyes and all related structures Sclera: sclerae normal Neck: Neck: supple Resp: Effort & Inspection: normal respiratory effort Cardio: Rate: regular rate Rhythm:
--- NOTE | 2023-10-05 12:59 | PM.IMPN ---
Progress Note: A&P Assessment and Plan (1) Acute congestive heart failure: Code(s): I50.9 - Heart failure, unspecified Status: Acute (2) Uncontrolled hypertension: Code(s): I10 - Essential (primary) hypertension Status: Acute (3) Obesity (BMI 35.0-39.9 without comorbidity): Code(s): E66.9 - Obesity, unspecified Status: Acute (4) Tobacco dependence: Code(s): F17.200 - Nicotine dependence, unspecified, uncomplicated Status: Acute Plan 43-year-old male with history of chronic hypertension presented with progressive shortness of breath with past month. He was recently seen in the Urgent Care was diagnosed with URI and was prescribed prednisone. Since taking the prednisone started noticing significant swelling in the abdomen and legs with worsening of the shortness of breath. No chest pain cough. On ED evaluation his vitals with tachycardia and hypertension. WBC 13.5 hemoglobin 17.5 creatinine of 0.4 on troponin was 0.076 with serial troponin 0.094-0.085. More less flat. BNP elevated at 4680. EKG with sinus tachycardia with no acute ST-T changes. Chest x-ray with bibasilar infiltrates which may represent atelectasis or developing pneumonia with cardiomegaly. Cardiology has been consulted. Echocardiogram performed showed severely reduced ejection fraction 30-35% grade 2 diastolic dysfunction. Blood pressure control being adjusted medication per Cardiology continue diuresis with Lasix 40 mg daily as ordered. Chest x-ray with mild atelectasis in the right lower lung zone with cardiomegaly. Get venous duplex ultrasound and also will check D-dimer may need evaluation for PE if non-revealing. Abdominal ultrasound with hepatomegaly Polysubstance use disorder including use of ecstasy and marijuana Frequent NSVT replace electrolytes. With cardiomyopathy noted on echo likely needs ischemic evaluation. Plan for cardiac catheterization once euvolemic DVT prophylaxis with Lovenox. Possible sleep apnea. Apnea link could not be completed appropriately. Elevated troponin with flat trend Subjective Date/time seen: 10/05/23 12:59 Interval history: 43-year-old male with history of chronic hypertension presented with progressive shortness of breath with past month. He was recently seen in the Urgent Care was diagnosed with URI and was prescribed prednisone. Since taking the prednisone started noticing significant swelling in the abdomen and legs with worsening of the shortness of breath. No chest pain cough. On ED evaluation his vitals with tachycardia and hypertension. WBC 13.5 hemoglobin 17.5 creatinine of 0.4 on troponin was 0.076 with serial troponin 0.094-0.085. More less flat. BNP elevated at 4680. EKG with sinus tachycardia with no acute ST-T changes. Chest x-ray with bibasilar infiltrates which may represent atelectasis or developing pneumonia with cardiomegaly. Cardiology has been consulted. Plan for echocardiogram. Patient received 1 dose of Lasix in the ER. Continue diuresis blood pressure control. DVT prophylaxis with Lovenox. Possible sleep apnea. Check ApneaLink Elevated troponin 10/04/2023: No overnight events apnea link test reviewed he states he could not sleep at night. 10/05/2023: No overnight events. Feels a bit more short of breath today. Echo findings reviewed with the patient. Cardiology note reviewed. Review of Systems Review of Systems: All systems reviewed & are unremarkable except as noted in HPI and below Exam Narrative: GENERAL: Well-developed, well-nourished, and in no acute distress. HEAD: Normocephalic, atraumatic. EYES: PERRLA and EOMI. NECK: Supple.? CHEST:? Diminished breath sounds bilaterally No respiratory distress.? No wheezes or rhonchi HEART: Regular rate and rhythm.? No murmur heard.? Normal peripheral pulses. ABDOMEN: Soft, nontender, nondistended, normal active bowel sounds. Trace edema of the lower abdomen here abdominal wall and proxim
[2023-10-05] MEDS: ACETAMINOPHEN 325 MG TABLET 650 MG PO (15:03)
[2023-10-05 15:17] LABS: D Dimer 1.61 ug/mL (<0.48)
[2023-10-05] MEDS: SACUBITRIL/VALSARTAN 24-26 MG TABLET 1 TAB PO (21:18)
[2023-10-06] VITALS (26 sets, daily range): BP systolic 141–157; BP diastolic 87–107; PULSE 78–93; RESP 16–20; TEMP 36.4–36.9; O2SAT 93–98
[2023-10-06] MEDS: IPRATROPIUM 0.5 MG/ALBUTEROL SULFATE 2.5 MG AMPUL.NEB 3 ML INHALATION ×4 (02:06→20:38)
[2023-10-06 05:02] LABS: Basophils Absolute Auto 0.1 K/mm3 (0.0-0.1); Basophils Percent Auto 0.6 % (0.2-1.2); Eosinophils Absolute Auto 0.1 K/mm3 (0-0.3); Eosinophils Percent Auto 1.6 % (0-4.4); Hematocrit 47.6 % (42.0-52.0); Hemoglobin 15.4 g/dL (14.0-18.0); Immature Granulocyte Absolute 0.04 K/mm3 (0.00-0.031); Immature Granulocyte Percent A 0.5 % (0-0.5); Lymphocytes Percent Auto 23.3 % (18.3-44.2); Mean Corpuscular HGB Conc 32.4 g/dl (32-36); Mean Corpuscular Hemoglobin 30.3 pg (26-34); Mean Corpuscular Volume 93.5 fl (80-100); Monocytes Absolute Auto 0.8 K/mm3 (0.1-0.6); Monocytes Percent Auto 10.9 % (2.6-8.5); Neutrophils Absolute Auto 4.9 K/mm3 (1.3-6.7); Neutrophils Percent Auto 63.1 % (45.5-73.1); Platelet Count Result 289 k/mm3 (150-375); Red Blood Count 5.09 M/mm3 (4.6-6.20); Red Cell Distribution Width 13.4 % (11.5-14.5); White Blood Count 7.7 K/mm3 (4.5-10.0)
[2023-10-06 05:11] LABS: Alanine Aminotransferase 35 U/L (6-50); Albumin Level 3.6 g/dL (3.5-5.1); Alkaline Phosphatase 76 U/L (38-126); Anion Gap 5 mmol/L (4-12); Aspartate Amino Transferase 33 U/L (17-59); Bilirubin,Total 1.6 mg/dL (0.2-1.3); Blood Urea Nitrogen 20 mg/dL (9-20); Calcium 8.3 mg/dL (8.4-10.2); Carbon Dioxide 28 mmol/L (22-30); Chloride 103 mmol/L (98-107); Estimated CRCL calculation 152 ml/min; Estimated Glomerular Filt Rate > 60; Glucose 92 mg/dL (65-110); Magnesium 2.3 mg/dL (1.6-2.3); Potassium 4.2 mmol/L (3.4-5.0); Sodium 136 mmol/L (137-145)
[2023-10-06] MEDS: FUROSEMIDE INJ 40 MG/4 ML VIAL IV PUSH ×2 (08:25→12:30)
[2023-10-06] MEDS: carvediloL 12.5 MG TABLET PO ×2 (08:25→21:08)
[2023-10-06] MEDS: SPIRONOLACTONE 25 MG TABLET PO (08:25)
[2023-10-06] MEDS: SACUBITRIL/VALSARTAN 24-26 MG TABLET 1 TAB PO (08:25)
--- NOTE | 2023-10-06 11:10 | PM.PNCARD ---
Progress Note: A&P Assessment and Plan (1) Acute congestive heart failure: Code(s): I50.9 - Heart failure, unspecified Status: Acute Assessment and Plan: Patient has acute systolic heart failure. Echocardiogram shows LVEF 30-35%, grade 2 diastolic dysfunction, mild enlargement of left atrium, mild MR, mild TR, small pericardial effusion. Likely from long-standing history of marked hypertension/hypertensive heart disease, in combination with polysubstance abuse. Continue IV Lasix 40mg once daily for now. I will give him an extra dose of 40 mg IV Lasix x1 now. Continue Coreg 12.5mg BID. Increase Entresto to 49/51 mg p.o. b.i.d.. Continue spironolactone Will plan to add SGLT2 inhibitor tomorrow. Uptitrate heart failure GDMT as tolerated. Will eventually need cardiac cath to rule out ischemic heart disease, however, will plan for cath once patient is euvolemic. (2) Tobacco dependence: Code(s): F17.200 - Nicotine dependence, unspecified, uncomplicated Status: Acute Assessment and Plan: Tobacco use counseling was performed (3) Uncontrolled hypertension: Code(s): I10 - Essential (primary) hypertension Status: Acute Assessment and Plan: Still elevated, antihypertensive medication changes as noted above. (4) Polysubstance use disorder: Code(s): F19.90 - Other psychoactive substance use, unspecified, uncomplicated Status: Acute Assessment and Plan: Including use of ecstasy and marijuana Substance use counseling performed (5) Elevated troponin: Code(s): R79.89 - Other specified abnormal findings of blood chemistry Status: Acute Assessment and Plan: Aspirin 81 mg p.o. daily. Elevated troponins likely related to severe, marked hypertension (6) Nonsustained ventricular tachycardia: Code(s): I47.29 - Other ventricular tachycardia Status: Acute Assessment and Plan: Frequent episodes of nonsustained ventricular tachycardia. Keep electrolytes optimized. Up titrating Carvedilol. Will eventually need cardiac cath to rule out ischemic heart disease, however, will plan for cath once patient is euvolemic. I did talk to him about LifeVest and he is in agreement (7) Cardiomyopathy: Code(s): I42.9 - Cardiomyopathy, unspecified Status: Acute Assessment and Plan: Severe with EF 30 35%. Up titrating meds. Okay for LifeVest upon discharge. Will proceed and order now Subjective Date/time seen: 10/06/23 11:10 Interval history: Reason for visit: Acute systolic heart failure HPI: Patient 43-year-old male who has history of hypertension.? He sporadically takes medications for it.? He does not have a primary care provider.? He has been progressively more short of breath x 1 month.? He did go to urgent care and received prednisone.? He thought that his shortness of breath may been related to asthma.? Prednisone did not provide any relief of his dyspnea.? He has had progressively worsening shortness of breath to the point that he has had paroxysmal nocturnal dyspnea x1 week.? Worsening edema and abdominal distension also x1 week.? He came to the hospital for further workup and evaluation.? Patient was noted to have marked hypertension upon presentation and heart failure.? Is admitted for further workup evaluation treatment.? He has undergone some diuresis and is feeling a little better.? He however is having some runs of nonsustained ventricular tachycardia.? He denies any chest pain, syncope, presyncope, orthopnea palpitations. Date of service 10/03: Still does not feel great.? Still has abdominal swelling.? No chest pain.? Breathing is a little better. Date of service 10/04: Had some shortness of breath this morning. Still with abdominal, scrotal swelling. He is tearful this morning. Date of service 10/06/2023: Still has some swelling and abdominal distention but continues to progressively feel better. Still unable to
[2023-10-06] MEDS: ENOXAPARIN 40 MG/0.4 ML SYRINGE SUB-Q (12:31)
--- NOTE | 2023-10-06 13:32 | PM.IMPN ---
Progress Note: A&P Assessment and Plan (1) Acute congestive heart failure: Code(s): I50.9 - Heart failure, unspecified Status: Acute Assessment and Plan: Patient presented with progressive shortness of breath over the past month. BNP 4680. CXR with bibasilar infiltrates and CMG EKG with sinus tachycardia (109) with no acute ST-T changes. Echo showed severely reduced EF 30-35%, grade 2 diastolic dysfunction and mild valvular disease. Patient with new onset acute systolic and disatolic CHF. Started on lasix. Daily weights not accurate and I/O's not calculated. Contineu to follow clinically. (2) Uncontrolled hypertension: Code(s): I10 - Essential (primary) hypertension Status: Acute Assessment and Plan: Patient's blood pressure was reviewed on 10/05 Blood pressure better controlled. Will continue to titrate medications (3) Elevated troponin: Code(s): R79.89 - Other specified abnormal findings of blood chemistry Status: Acute Assessment and Plan: Troponin up to 0.094 but overall flat pattern. EKG as above [place] related to CHF and not ACS Plan for [facility] when more euvolemic to assess for underlying coronary disease (4) Nonsustained ventricular tachycardia: Code(s): I47.29 - Other ventricular tachycardia Status: Acute Assessment and Plan: Patient having episodes of NSVT. On Coreg currently. Mag 2.3, Potassium 4.2 Life Vest planned prior to discahrge and has been ordered (5) Cardiomyopathy: Code(s): I42.9 - Cardiomyopathy, unspecified Status: Acute Assessment and Plan: Echo as above Contineu Entresto, Coreg and Aldactone. As above (6) Obesity (BMI 35.0-39.9 without comorbidity): Code(s): E66.9 - Obesity, unspecified Status: Acute Assessment and Plan: BMI 41. Healthy lifestyle choices discussed Dietary evaluated the patient on 10/03 (7) Polysubstance use disorder: Code(s): F19.90 - Other psychoactive substance use, unspecified, uncomplicated Status: Acute Assessment and Plan: Educate about the benefits of abstaining from illegal drug use. (8) Tobacco dependence: Code(s): F17.200 - Nicotine dependence, unspecified, uncomplicated Status: Acute Assessment and Plan: Educate about the benefits of abstaining from tobacco use. Plan DVT prophylaxis with Lovenox. Code status -full Subjective Date/time seen: 10/06/23 13:32 Interval history: 43yo male with HTN here for progressive SOB. Assuming care. Chart reveiwed. Feeling good. Slept well. No SOB but BASILIO when moving in bed and walking too fast to the BR Exam Narrative: AF 98.2 141/89 89 18 95% ra Gen - NARD Chest - few basilar crackles o/w clear CV - RRR S1/S2. Tele showing 3-4 episodes of 4-5 beat runs of NSVT Abd - Soft, NT/ND, Positive BS. abd wall and flank edema Ext - 3++ pitting bilateral LE edema Psych - Nml mood but flat affect Skin - Warm and dry Objective Data Vital Signs Vital Signs: Vital Signs - 24 hr 10/05/23 14:22 10/05/23 14:32 10/05/23 14:00 Temperature Pulse Rate 90 89 93 Respiratory Rate 18 18 Blood Pressure Pulse Oximetry Oxygen Delivery 10/05/23 16:00 10/05/23 16:00 10/05/23 16:00 Temperature 97.5 F L Pulse Rate 99 92 Respiratory Rate 16 Blood Pressure 149/102 H Pulse Oximetry 96 98 Oxygen Delivery Room Air 10/05/23 18:00 10/05/23 19:32 10/05/23 20:33 Temperature 97.1 F L Pulse Rate 90 91 93 Respiratory Rate 18 16 Blood Pressure 153/98 H Pulse Oximetry 98 Oxygen Delivery 10/05/23 20:40 10/05/23 20:40 10/05/23 21:18 Temperature Pulse Rate 89 93 78 Respiratory Rate 16 Blood Pressure Pulse Oximetry 95 Oxygen Delivery Room Air 10/05/23 20:00 10/05/23 20:00 10/05/23 22:00 Temperature Pulse Rate 86 86 90 Respiratory Rate 16 Blood Pressure Pulse Oxim
[2023-10-06] MEDS: SACUBITRIL/VALSARTAN 49-51 MG TABLET 1 TABLET PO (21:08)
[2023-10-07] VITALS (40 sets, daily range): BP systolic 127–162; BP diastolic 75–127; PULSE 80–93; RESP 14–24; TEMP 36.2–36.6; O2SAT 91–100
[2023-10-07] MEDS: IPRATROPIUM 0.5 MG/ALBUTEROL SULFATE 2.5 MG AMPUL.NEB 3 ML INHALATION ×3 (03:03→20:21)
[2023-10-07 04:56] LABS: Hematocrit 48.1 % (42.0-52.0); Hemoglobin 15.3 g/dL (14.0-18.0); Mean Corpuscular HGB Conc 31.8 g/dl (32-36); Mean Corpuscular Hemoglobin 29.9 pg (26-34); Mean Corpuscular Volume 94.1 fl (80-100); Mean Platelet Volume 9.6 fl (7.4-10.4); Platelet Count Result 311 k/mm3 (150-375); Red Blood Count 5.11 M/mm3 (4.6-6.20); Red Cell Distribution Width 13.2 % (11.5-14.5)
[2023-10-07 05:14] LABS: Alanine Aminotransferase 32 U/L (6-50); Albumin Level 3.4 g/dL (3.5-5.1); Alkaline Phosphatase 72 U/L (38-126); Anion Gap -1 mmol/L (4-12); Aspartate Amino Transferase 30 U/L (17-59); Bilirubin,Total 1.8 mg/dL (0.2-1.3); Blood Urea Nitrogen 23 mg/dL (9-20); Calcium 8.2 mg/dL (8.4-10.2); Carbon Dioxide 34 mmol/L (22-30); Chloride 101 mmol/L (98-107); Estimated CRCL calculation 136 ml/min; Estimated Glomerular Filt Rate > 60; Glucose 95 mg/dL (65-110); Magnesium 2.3 mg/dL (1.6-2.3); Potassium 4.2 mmol/L (3.4-5.0); Sodium 134 mmol/L (137-145)
--- NOTE | 2023-10-07 09:06 | PM.PNCARD ---
Progress Note: A&P Assessment and Plan (1) Acute congestive heart failure: Code(s): I50.9 - Heart failure, unspecified Status: Acute Assessment and Plan: Patient has acute systolic heart failure. Echocardiogram shows LVEF 30-35%, grade 2 diastolic dysfunction, mild enlargement of left atrium, mild MR, mild TR, small pericardial effusion. Likely from long-standing history of marked hypertension/hypertensive heart disease, in combination with polysubstance abuse. Continue IV Lasix 40mg once daily for now. His I/Os are not accurately recorded. Please record accurate I/Os if possible. Continue Coreg 12.5mg BID. Continue Entresto 49/51 mg BID Continue Spironolactone 25mg once daily. Added Jardiance 10mg once daily today. Uptitrate heart failure GDMT as tolerated. Patient is agreeable to Life Vest. Order for Life Vest placed 10/05. [facility] planned for today to rule out obstructive CAD. (2) Tobacco dependence: Code(s): F17.200 - Nicotine dependence, unspecified, uncomplicated Status: Acute Assessment and Plan: Tobacco use counseling was performed (3) Uncontrolled hypertension: Code(s): I10 - Essential (primary) hypertension Status: Acute Assessment and Plan: Still elevated, antihypertensive medication changes as noted above. (4) Polysubstance use disorder: Code(s): F19.90 - Other psychoactive substance use, unspecified, uncomplicated Status: Acute Assessment and Plan: Including use of ecstasy and marijuana Substance use counseling performed (5) Elevated troponin: Code(s): R79.89 - Other specified abnormal findings of blood chemistry Status: Acute Assessment and Plan: Aspirin 81 mg Daily. Elevated troponins likely related to severe, marked hypertension (6) Nonsustained ventricular tachycardia: Code(s): I47.29 - Other ventricular tachycardia Status: Acute Assessment and Plan: Frequent episodes of nonsustained ventricular tachycardia. Keep electrolytes optimized. Up titrating Carvedilol. Plan for cardiac cath to rule out ischemic heart disease. (7) Cardiomyopathy: Code(s): I42.9 - Cardiomyopathy, unspecified Status: Acute Assessment and Plan: Severe with EF 30-35%. Up titrating meds. Okay for LifeVest upon discharge. Subjective Date/time seen: 10/07/23 09:06 Interval history: Reason for visit: Acute systolic heart failure HPI: Patient 43-year-old male who has history of hypertension.? He sporadically takes medications for it.? He does not have a primary care provider.? He has been progressively more short of breath x 1 month.? He did go to urgent care and received prednisone.? He thought that his shortness of breath may been related to asthma.? Prednisone did not provide any relief of his dyspnea.? He has had progressively worsening shortness of breath to the point that he has had paroxysmal nocturnal dyspnea x1 week.? Worsening edema and abdominal distension also x1 week.? He came to the hospital for further workup and evaluation.? Patient was noted to have marked hypertension upon presentation and heart failure.? Is admitted for further workup evaluation treatment.? He has undergone some diuresis and is feeling a little better.? He however is having some runs of nonsustained ventricular tachycardia.? He denies any chest pain, syncope, presyncope, orthopnea palpitations. Date of service 10/03: Still does not feel great.? Still has abdominal swelling.? No chest pain.? Breathing is a little better. Date of service 10/04: Had some shortness of breath this morning. Still with abdominal, scrotal swelling. He is tearful this morning. Date of service 10/06/2023: Still has some swelling and abdominal distention but continues to progressively feel better. Still unable to lay flat. No chest pain Date of service 10/06: Swelling is getting better. He reports no issues with laying flat. Review of Syste
--- NOTE | 2023-10-07 09:12 | WPDMODSED ---
Moderate Sedation Note-Pt Data Patient Data Diagnosis: Cardiomyopathy Present Complaint: Cardiomyopathy Procedure to be performed/Plan: Coronary angiography, left heart cath, +/- PCI Allergies Allergy/AdvReac Type Severity Reaction Status Date / Time nut - unspecified Allergy Unknown Unknown Verified 07/16/22 02:03 Penicillins Allergy Unknown Unknown Verified 07/16/22 02:03 BP med Allergy Mild Rash Uncoded 07/16/22 02:03 Home Medications Medication Instructions Recorded Confirmed Type No Home Medications 10/03/23 10/03/23 History Current Medications: Active Medications Acetaminophen (Acetaminophen 325 Mg Tablet) 650 mg PO Q6H PRN PRN Reason: Mild Pain (1-3) or Fever Last Admin: 10/05/23 15:03 Dose: 650 mg Albuterol/Ipratropium (Ipratropium 0.5 Mg/Albuterol Sulfate 2.5 Mg Ampul.Neb 3 Ml) 3 ml INHALATION Q6HRT [facility] Last Admin: 10/07/23 07:28 Dose: 3 ml Aspirin (Aspirin 81 Mg Enteric Tablet) 81 mg PO QAM [facility] Carvedilol (Carvedilol 12.5 Mg Tablet) 12.5 mg PO Q12HR [facility] Last Admin: 10/06/23 21:08 Dose: 12.5 mg Empagliflozin (Empagliflozin 10 Mg Tablet) 10 mg PO DAILY [facility] Enoxaparin Sodium (Enoxaparin 40 Mg/0.4 Ml Syringe) 40 mg SUB-Q DAILY [facility] Last Admin: 10/06/23 12:31 Dose: 40 mg Furosemide (Furosemide Inj 40 Mg/4 Ml Vial) 40 mg IV PUSH DAILY [facility] Last Admin: 10/06/23 08:25 Dose: 40 mg Hydralazine HCl (Hydralazine Hcl 20 Mg/Ml Vial) 10 mg IV PUSH Q8H PRN PRN Reason: SBP >150 Last Admin: 10/05/23 08:23 Dose: 10 mg Sacubitril/Valsartan (Sacubitril/Valsartan 49-51 Mg Tablet) 1 tablet PO Q12HR [facility] Last Admin: 10/06/23 21:08 Dose: 1 tablet Spironolactone (Spironolactone 25 Mg Tablet) 25 mg PO QAM [facility] Last Admin: 10/06/23 08:25 Dose: 25 mg Sedation/Anesthesia: No previous sedation/anesthesia problems (including family history). [facility] Past Medical History Medical History Cardiomyopathy Elevated troponin Hypertension Surgical History Surgical History No pertinent past surgical history Family History Family History Sibling Hypertension Congestive heart failure Cerebrovascular accident Mother Hypertension Social History Social History Social History: The patient lives with his . He does not have a durable power cartridge loader. He is a full code. He has no children. 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 He was supposed to start work at a new job tomorrow but has not been able to make it. He smokes marijuana on a daily basis. He smokes cigarettes a half pack cigarettes a day. Smoking packs per day: 0.5 Smoking cigarettes per day: 10.0 Years smoked: 30 Smoking pack-years: 15.00 Smoking status: Current every day smoker Tobacco type: cigarettes Additional smoking assessment comments: Daily marijuana Alcohol intake: current Drinks per week: 2 Alcohol use details: social Substance use: current Substance use type: marijuana and other Other substance usage details: Ecstacy for nightmares Last use: Last week Do You Feel Safe in your Home?: Yes Lack of Transportation: No Lack of Food: Never True Current Housing: I Have Housing Concerned About Future Housing: No Difficulty Paying Gas/Electric Bills: No Difficulty Paying for Meds: No Currently Unemployed: No Education: High School Diploma/GED Difficulty w/ Childcare or Family Care: No Living arrangements: with family Occupation/Education: unemployed 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 Gender identity (if verbalized by the patient): Male Spiritual care concerns: No Agree to blood products: No Mod Sed Physical Exam Physical Exam Pre Procedural Exam: Normal: Appearance, Lungs, Heart Rate
[2023-10-07] MEDS: ASPIRIN 81 MG ENTERIC TABLET PO (09:56)
[2023-10-07] MEDS: FUROSEMIDE INJ 40 MG/4 ML VIAL IV PUSH ×2 (09:56→16:42)
[2023-10-07] MEDS: SPIRONOLACTONE 25 MG TABLET PO (09:57)
[2023-10-07] MEDS: EMPAGLIFLOZIN 10 MG TABLET PO (09:57)
[2023-10-07] MEDS: SACUBITRIL/VALSARTAN 49-51 MG TABLET 1 TABLET PO ×2 (09:57→21:41)
[2023-10-07] MEDS: carvediloL 12.5 MG TABLET PO ×2 (09:57→21:41)
--- NOTE | 2023-10-07 10:54 | PM.IMPN ---
Progress Note: A&P Assessment and Plan (1) Acute congestive heart failure: Code(s): I50.9 - Heart failure, unspecified Status: Acute Assessment and Plan: Patient presented with progressive shortness of breath over the past month. BNP 4680. CXR with bibasilar infiltrates and CMG CTA chest negative for PE but with small right pleural effusion and linear bands BLL and RML, 6mm LLL nodule EKG with sinus tachycardia (109) with no acute ST-T changes. Echo showed severely reduced EF 30-35%, grade 2 diastolic dysfunction and mild valvular disease. Patient with new onset acute systolic and diastolic CHF. Started on lasix. Daily weights not accurate and I/O's not calculated. Continue to follow clinically. (2) Uncontrolled hypertension: Code(s): I10 - Essential (primary) hypertension Status: Acute Assessment and Plan: Patient's blood pressure was reviewed on 10/06 Blood pressure overall better but still elevated. Will continue to titrate medications Check Luis Alberto, PRA (although now on Aldosterone). Check TSH, cortisol. Check renal US and doppler (3) Elevated troponin: Code(s): R79.89 - Other specified abnormal findings of blood chemistry Status: Acute Assessment and Plan: Troponin up to 0.094 but overall flat pattern. EKG as above [place] related to CHF and not ACS Plan for [facility] when more euvolemic to assess for underlying coronary disease (4) Nonsustained ventricular tachycardia: Code(s): I47.29 - Other ventricular tachycardia Status: Acute Assessment and Plan: Patient having episodes of NSVT. On Coreg currently. Mag 2.3, Potassium 4.2 Life Vest planned prior to discharge and has been ordered (5) Cardiomyopathy: Code(s): I42.9 - Cardiomyopathy, unspecified Status: Acute Assessment and Plan: Echo as above Contineu Entresto, Coreg and Aldactone. As above (6) Obesity (BMI 35.0-39.9 without comorbidity): Code(s): E66.9 - Obesity, unspecified Status: Acute Assessment and Plan: BMI 41. Healthy lifestyle choices discussed Dietary evaluated the patient on 10/03 (7) Polysubstance use disorder: Code(s): F19.90 - Other psychoactive substance use, unspecified, uncomplicated Status: Acute Assessment and Plan: Educate about the benefits of abstaining from illegal drug use. (8) Tobacco dependence: Code(s): F17.200 - Nicotine dependence, unspecified, uncomplicated Status: Acute Assessment and Plan: Patient educated about the benefits of abstaining from tobacco use. Plan DVT prophylaxis with Lovenox. Code status -full Subjective Date/time seen: 10/07/23 10:54 Interval history: 43yo male with HTN here for progressive SOB. Feels tired. He slept poorly last night that he feels related to feeling ?anxious?. He feels his legs are less swollen. No chest pain or shortness of breath. No significant dyspnea on exertion walking to the bathroom. Exam Narrative: AF 97.1 154/117 80 24 97% ra Gen - NARD Chest - decreased BS left base o/w clear CV - RRR S1/S2. Tele showing 5 beat runs of NSVT Abd - Soft, NT/ND, Positive BS. flank edema noted Ext - 2+ pitting bilateral LE edema Psych - Nml mood and more engaged. Skin - Warm and dry Objective Data Vital Signs Vital Signs: Vital Signs - 24 hr 10/06/23 11:08 10/06/23 14:31 10/06/23 15:36 Temperature 98.2 F 97.7 F Pulse Rate 84 89 91 Respiratory Rate 17 18 16 Blood Pressure 141/89 H 157/87 H Pulse Oximetry 95 93 Oxygen Delivery 10/06/23 12:00 10/06/23 14:00 10/06/23 14:41 Temperature Pulse Rate 83 90 86 Respiratory Rate 18 Blood Pressure Pulse Oximetry Oxygen Delivery 10/06/23 12:00 10/06/23 16:00 10/06/23 16:00 Temperature Pulse Rate 91 93 93 Respiratory Rate 16 20 Blood Pressure Pulse Oximetry 93 93 Oxygen Delivery Room Air Room Air
--- NOTE | 2023-10-07 13:32 | WPDCARDPROC ---
Cardiac Cath Procedure Note Date of procedure:: 10/07/23 Performing physician:: CATHETERIZATION LABORATORY REPORT Procedure Date: 10/07/2023 Nozzle Worker: Irasema Sousa M.D., [facility]? Referring Physician: James Costa M.D. Anesthesia: Versed and Fentanyl were ordered and given in my presence at 12:59, procedure ended at 13:25. Supervision of nurse monitored moderate sedation with Versed and Fentanyl was provided for 26 minutes. Total of Versed 1mg and Fentanyl 25mcg were administered by the Regional Engineer RN Tova Garcia. Pre-op Diagnosis: Heart failure with reduced ejection fraction Post-op Diagnosis: 1. Non-obstructive coronary artery disease 2. Severely elevated left ventricular end-diastolic pressure of 41mmHg Procedure(s): 1. Moderate sedation 2. Ultrasound-guided access of the right radial artery 3. Coronary angiography 4. Left heart catheterization Access Site: Right radial artery Brief History and Clinical Indications: Patient is a 43 year old male who is referred for [facility] for ischemic evaluation for new diagnosis of heart failure with reduced ejection fraction. All risks, benefits and alternatives to left heart catheterization with or without percutaneous coronary intervention was discussed at length with the patient. Risk of complications including but not limited to bleeding, infection, arrhythmia, stroke, worsening kidney function, blood loss, groin hematoma, limb loss, emergency coronary artery bypass grafting, and even were discussed with the patient and all questions were answered. The patient understood and wished to proceed. Time out called, patient name, date of , medical record number, allergies, procedure performed, identify Nozzle Worker, patient and staff member concurred with accurate data, procedure carried on. Findings: LEFT HEART CATHETERIZATION FINDINGS: 1. Left main: The left main coronary artery is widely patent without any significant obstructive disease. 2. Left anterior descending: The LAD and the diagonal branches have luminal irregularities without any significant obstructive angiographic disease. 3. Left circumflex: The left circumflex artery and the main marginal branches have mild diffuse disease without any significant obstructive angiographic disease. 4. Right coronary artery: The RCA has mild diffuse disease without any significant obstructive angiographic disease. The RCA is the dominant vessel. Slow flow noted in the RCA. 5. Left ventricle: A. End-diastolic pressure 41 mmHg. B. LV gram deferred. C. No significant gradient across aortic valve on catheter pullback. Description of Procedure: Informed consent signed and placed in the chart. Patient transferred to tailings dam laborer room. Prepped and draped in usual sterile fashion. 2% lidocaine injected subcutaneously in right wrist area. 22-gauge venipuncture catheter used to access the right radial artery under ultrasound guidance. 6-FR slender sheath placed in right radial artery. Nitroglycerine and Verapamil were given intraarterial through the sheath. Versacore wire advanced under fluoroscopy 5F Tig 4 diagnostic catheter engaged Left Main Coronary Artery. 5F Tig 4 diagnostic catheter engaged Right Coronary Artery Multiple orthogonal angiogram obtained and reviewed 5F Pigtail diagnostic catheter crossed aortic valve to obtain LVEDP, LV angiogram deferred. Hemostasis was achieved by application of TR band. Post Operative Condition: Stable No significant blood loss Disposition: Floor Plan: The patient will be monitored in the recovery area. The above findings were discussed with the referring physician. Continue aggressive medical therapy and risk factor modification. See consult note for additional recommendations and plan. ? Irasema Sousa M.D. Interventional Cardiology
[2023-10-08] VITALS (17 sets, daily range): BP systolic 124–140; BP diastolic 81–96; PULSE 79–92; RESP 16–20; TEMP 36.1–36.4; O2SAT 91–98
[2023-10-08] MEDS: IPRATROPIUM 0.5 MG/ALBUTEROL SULFATE 2.5 MG AMPUL.NEB 3 ML INHALATION ×3 (02:23→13:14)
[2023-10-08] MEDS: ACETAMINOPHEN 325 MG TABLET 650 MG PO ×2 (02:34→09:16)
[2023-10-08 04:57] LABS: Anion Gap 1 mmol/L (4-12); Blood Urea Nitrogen 22 mg/dL (9-20); Calcium 8.3 mg/dL (8.4-10.2); Carbon Dioxide 34 mmol/L (22-30); Chloride 100 mmol/L (98-107); Estimated CRCL calculation 123 ml/min; Estimated Glomerular Filt Rate > 60; Glucose 87 mg/dL (65-110); Magnesium 2.3 mg/dL (1.6-2.3); Potassium 4.2 mmol/L (3.4-5.0); Sodium 135 mmol/L (137-145)
[2023-10-08] MEDS: EMPAGLIFLOZIN 10 MG TABLET PO (09:16)
[2023-10-08] MEDS: FUROSEMIDE INJ 40 MG/4 ML VIAL IV PUSH (09:16)
[2023-10-08] MEDS: SACUBITRIL/VALSARTAN 49-51 MG TABLET 1 TABLET PO (09:17)
[2023-10-08] MEDS: carvediloL 12.5 MG TABLET PO (09:17)
[2023-10-08] MEDS: SPIRONOLACTONE 25 MG TABLET PO (09:17)
[2023-10-08] MEDS: ASPIRIN 81 MG ENTERIC TABLET PO (09:17)
--- NOTE | 2023-10-08 11:42 | PM.PNCARD ---
Progress Note: A&P Assessment and Plan (1) Cardiomyopathy: Code(s): I42.9 - Cardiomyopathy, unspecified Status: Acute Plan 43-year-old man with: Nonischemic, likely hypertensive cardiomyopathy. He does not have any coronary artery disease as per cardiac catheterization results from yesterday. He is on appropriate guideline directed medical therapy and seems to be doing quite well. He is stable/for discharge any time from our perspective. I will ensure that he has appropriate/timely follow-up in the office for ongoing medication titration and follow-up. Claudio Mujica MD [facility] Subjective Date/time seen: Date of service: 10/08/23 11:42 Interval history: Reason for visit: Acute systolic heart failure HPI: Patient 43-year-old male who has history of hypertension.? He sporadically takes medications for it.? He does not have a primary care provider.? He has been progressively more short of breath x 1 month.? He did go to urgent care and received prednisone.? He thought that his shortness of breath may been related to asthma.? Prednisone did not provide any relief of his dyspnea.? He has had progressively worsening shortness of breath to the point that he has had paroxysmal nocturnal dyspnea x1 week.? Worsening edema and abdominal distension also x1 week.? He came to the hospital for further workup and evaluation.? Patient was noted to have marked hypertension upon presentation and heart failure.? Is admitted for further workup evaluation treatment.? He has undergone some diuresis and is feeling a little better.? He however is having some runs of nonsustained ventricular tachycardia.? He denies any chest pain, syncope, presyncope, orthopnea palpitations. Date of service 10/03: Still does not feel great.? Still has abdominal swelling.? No chest pain.? Breathing is a little better. Date of service 10/04: Had some shortness of breath this morning. Still with abdominal, scrotal swelling. He is tearful this morning. Date of service 10/06/2023: Still has some swelling and abdominal distention but continues to progressively feel better. Still unable to lay flat. No chest pain Date of service 10/06: Swelling is getting better. He reports no issues with laying flat. Date of service 10/08/2023: Patient is asymptomatic he is laying flat in bed watching television does not have any active symptoms. Discussed with him his findings from yesterday's catheterization procedure. Exam Narrative: Awake alert oriented appears to be in no acute distress at present. Appears stated age Const: General: comfortable and no acute distress HENMT: Face/Nose/Sinus: Normal nares present Mouth: Yes moist mucous membranes Eyes: General: appearance normal, both eyes and all related structures Sclera: sclerae normal Neck: Neck: supple and no JVD Carotids: no bruits Chest: Other: No reproducible chest wall pain to palpation Resp: Effort & Inspection: normal respiratory effort Auscultation: clear to auscultation bilaterally Cardio: Rate: regular rate Rhythm: regular rhythm Heart sounds: no murmurs Other: + Lower extremity edema GI: Inspection: distended Auscultation: normal bowel sounds Skin: General skin exam: normal color Neuro: General: gait normal Cranial nerves: Yes Normal hearing present Speech: normal speech and No Abnormal speech present Extrem: General: edema Other: Mild lower extremity edema bilaterally Psych: Mental Status: mental status grossly normal Affect: normal affect, Sad affect present and Anxious affect present Objective Data Vital Signs Vital Signs: Vital Signs - 24 hr 10/07/23 11:48 10/07/23 12:00 10/07/23 14:00 Temperature 36.2 C L Pulse Rate 83 84 83 Pulse Rate [Right Radial Palpation] Respiratory Rate 24 H 21 H Blood Pressure 135/95 H 142/107 H Pulse Oximetry 97 99 Oxygen Delivery Room Air 10/07/23 14:00 10/07/23 14:15 10/07/23 14:15 Temperature
--- NOTE | 2023-10-08 15:49 | PM.DS ---
DS: Admitting Diagnosis Discharge Date 10/08/23 Admitting Diagnosis Shortness of breath DS: Discharge Diagnosis Discharge Diagnosis (1) Acute congestive heart failure: Code(s): I50.9 - Heart failure, unspecified Status: Acute (2) Uncontrolled hypertension: Code(s): I10 - Essential (primary) hypertension Status: Acute (3) Elevated troponin: Code(s): R79.89 - Other specified abnormal findings of blood chemistry Status: Acute (4) Nonsustained ventricular tachycardia: Code(s): I47.29 - Other ventricular tachycardia Status: Acute (5) Cardiomyopathy: Code(s): I42.9 - Cardiomyopathy, unspecified Status: Acute (6) Obesity (BMI 35.0-39.9 without comorbidity): Code(s): E66.9 - Obesity, unspecified Status: Acute (7) Polysubstance use disorder: Code(s): F19.90 - Other psychoactive substance use, unspecified, uncomplicated Status: Acute (8) Tobacco dependence: Code(s): F17.200 - Nicotine dependence, unspecified, uncomplicated Status: Acute DS: Summary Hospital Course Reason for hospitalization: 43yo male with HTN here for progressive SOB. Please see H&P for details Hospital Course: Patient presented with progressive shortness of breath over the past month.?BNP 4680.? CXR with bibasilar infiltrates and CMG. CTA chest negative for PE but with small right pleural effusion and linear bands BLL and RML, 6mm LLL nodule. EKG with sinus tachycardia (109) with no acute ST-T changes.?Echo showed severely reduced EF 30-35%, grade 2 diastolic dysfunction and mild valvular disease. Patient with new onset acute systolic and diastolic CHF. Started on lasix. Daily weights not accurate and I/O's not calculated. Patient's blood pressure was elevated to 195/126. He was started on guideline directed therapy with improvement in his blood pressure. His renal US with doppler was normal. TSH and cortisol levels normal. Luis Alberto, PRA pending. Troponin up to 0.094 but overall flat pattern. Joanna related to CHF and not ACS. Patient underwent left heart catheterization 10/06 showing no significant obstructive angiographic disease. Patient having episodes of NSVT. LifeVest ordered and patient given instructions on use. Patient with obesity with BMI 41. Healthy lifestyle choices discussed. Dietary evaluated the patient on 10/03. Educated about the benefits of abstaining from illegal drug use and tobacco use. He overall did well and was able to be discharged home on 10/08/23. Status at Discharge Cognitive/behavioral status at discharge: stable Time Spent with Patient Time attestation: Total time spent providing and/or coordinating discharge services: 38 minutes Time spent: Greater than 30 minutes Exam Narrative: AF 97.5 140/96 88 16 98% ra Gen - NARD Chest - CTA bilaterally, nml RR CV - RRR S1/S2. Tele showing 9 beat runs of NSVT x1 Abd - Soft, NT/ND, Positive BS. Ext - 2+ pitting bilateral LE edema Psych - Nml mood and affect Skin - Warm and dry DS: Data Data Completed and Pending Labs on day of discharge: Labs from last 24 hours 10/08/23 03:44 Sodium 135 L Potassium 4.2 Chloride 100 Carbon Dioxide 34 H Anion Gap 1 L BUN 22 H Creatinine 1.00 Estim Creat Clear Calc 123 Estimated GFR > 60 Glucose 87 Calcium 8.3 L Magnesium 2.3 Discharge Plan Discharge Attending physician on discharge: Justin Simental Consulting providers: David Rm; Marc Costa Discharging Clinician: Justin Simental Anticipated Discharge Date/Time: 10/08/23 16:00 Patient Disposition: Home, Self-Care Activity: as tolerated Diet: heart healthy Discharge Instructions: [facility] [address]
== END 2023-10-08 17:34 | disposition home or self-care (01) | DRG 192 ==
LOC: ANHED 10-03 02:47 → ANHIMU 10-03 03:32
PROVIDERS: Internal Medicine; Internal Medicine Cardiovascular Disease; Admitting Provider Internal Medicine; Emergency Provider Preventive Medicine Aerospace Medicine; Visit Provider Internal Medicine
PROC: 4A023N7 Measurement of Cardiac Sampling and Pressure, Left Heart, Percutaneous Approach (ICD-10-PCS; CPT 93452; principal; 2023-10-07 13:00)
DX: I11.0 Hypertensive heart disease with heart failure (principal); I50.41 Acute combined systolic (congestive) and diastolic (congestive) heart failure; I43 Cardiomyopathy in diseases classified elsewhere; I25.10 Atherosclerotic heart disease of native coronary artery without angina pectoris; I47.29 Other ventricular tachycardia; F17.210 Nicotine dependence, cigarettes, uncomplicated; R79.89 Other specified abnormal findings of blood chemistry; E66.9 Obesity, unspecified; Z68.38 Body mass index [BMI] 38.0-38.9, adult; G47.30 Sleep apnea, unspecified; F12.90 Cannabis use, unspecified, uncomplicated; F19.90 Other psychoactive substance use, unspecified, uncomplicated; I72.9 Aneurysm of unspecified site; R91.1 Solitary pulmonary nodule
CPT/HCPCS: 36415; 71045; 71046; 71275; 76700; 76775; 80048; 80053; 82088; 82533; 83735; 83880; 84244; 84443; 84484; 85025; 85027; 85380; 93005; 93458; 93970; 93976; 94640; 94762; 96372; 96374; 96375; 96376; 99285; A9270; C1769; C1887; C1894; C8929; G0378; G0379; J0360; J1644; J1650; J1940; J2250; J2305; J3010; J7040; Q9957; Q9967

== ENCOUNTER 2023-10-12 17:43 | Emergency (ER) | payer BC, SELFPAY ==
[2023-10-12] VITALS (21 sets, daily range): BP systolic 116–143; BP diastolic 84–115; PULSE 75–92; RESP 12–28; TEMP 36.4; O2SAT 96–100
--- NOTE | ~2023-10-12 | XR_ITS ---
EXAMINATION: XR chest 1V portable Exam Date/Time: 10/12/2023 18:12 CDT HISTORY: sob Comparison: None. RESULT: Lines, tubes, and devices: None. Lungs and pleura: Mild diffuse reticular opacities with prominent vessels and mild cuffing. Linear a telectasis/scar in the left midlung. Cardiomediastinal silhouette: Cardiomegaly. Other: No acute osseous or upper abdominal finding. IMPRESSION: Pulmonary vascular congestion. Reviewed, dictated and finalized at location K.
--- NOTE | 2023-10-12 17:47 | ECG_ITS ---
Measurements Intervals [place] Rate: 83 P: 57 ID: [id number] QRS: 61 QRSD: 94 T: 48 QT: 384 QTc: 453 Interpretive Statements SINUS RHYTHM LEFT ATRIAL ENLARGEMENT [-0.15mV P-WAVE IN V1/V2] NONSPECIFIC T-WAVE ABNORMALITY COMPARED TO ECG 10/03/2023 02:00:39 SINUS RHYTHM NOW PRESENT Electronically Signed On 10-13-2023 12:19:44 CDT by Irasema Sousa M.D.
--- NOTE | 2023-10-12 18:08 | PC.NURSE ---
gave VORB to remove pt Lifevest for Xray and to put it back on when xray is finished
[2023-10-12 18:27] LABS: Basophils Percent Auto 0.6 % (0.2-1.2); Eosinophils Absolute Auto 0.1 K/mm3 (0-0.3); Eosinophils Percent Auto 1.9 % (0-4.4); Hemoglobin 15.2 g/dL (14.0-18.0); Immature Granulocyte Absolute 0.03 K/mm3 (0.00-0.031); Immature Granulocyte Percent A 0.5 % (0-0.5); Mean Corpuscular HGB Conc 31.7 g/dl (32-36); Mean Corpuscular Hemoglobin 29.5 pg (26-34); Mean Corpuscular Volume 93.2 fl (80-100); Mean Platelet Volume 9.1 fl (7.4-10.4); Monocytes Absolute Auto 0.5 K/mm3 (0.1-0.6); Monocytes Percent Auto 8.2 % (2.6-8.5); Neutrophils Absolute Auto 4.3 K/mm3 (1.3-6.7); Neutrophils Percent Auto 66.8 % (45.5-73.1); Platelet Count Result 264 k/mm3 (150-375); Red Blood Count 5.15 M/mm3 (4.6-6.20); White Blood Count 6.4 K/mm3 (4.5-10.0)
[2023-10-12 18:37] LABS: Prothrombin Time 13.9 Seconds (11.1-14.7)
[2023-10-12 18:38] LABS: Partial Thromboplastin Time 29.1 Seconds (22.3-36.8)
[2023-10-12 19:01] LABS: Alanine Aminotransferase 35 U/L (6-50); Albumin Level 3.7 g/dL (3.5-5.1); Alkaline Phosphatase 80 U/L (38-126); Anion Gap 2 mmol/L (4-12); Aspartate Amino Transferase 43 U/L (17-59); Bilirubin,Total 1.1 mg/dL (0.2-1.3); Blood Urea Nitrogen 22 mg/dL (9-20); Calcium 8.3 mg/dL (8.4-10.2); Carbon Dioxide 29 mmol/L (22-30); Chloride 103 mmol/L (98-107); Estimated CRCL calculation 118 ml/min; Estimated Glomerular Filt Rate > 60; Glucose 131 mg/dL (65-110); Potassium 4.2 mmol/L (3.4-5.0); Sodium 134 mmol/L (137-145)
[2023-10-12 19:10] LABS: NT Pro B Type Natriuretic Pept 1590 pg/mL (19.9-100); Troponin I 0.026 ng/mL (0.000-0.034)
--- NOTE | 2023-10-12 19:15 | PC.NURSE ---
Report given to Genevieve MCNEAL, all questions answered.
[2023-10-12 20:10] LABS: Influenza A QL RT-PCR Negative (Negative); Influenza B QL RT-PCR Negative (Negative); RSV RNA, RT-PCR Negative (Negative); SARS-CoV-2 RNA PCR Negative (Negative)
--- NOTE | 2023-10-12 20:29 | ED.GENADULT ---
HPI - General Adult General Chief complaint: Shortness of Breath/Dyspnea Stated complaint: sob Time Seen by Provider: 10/12/23 19:18 History of Present Illness HPI narrative: Patient is a 43-year-old male who presents to the emergency department this evening complaining of shortness of breath. Patient was recently diagnosed with CHF and had an echocardiogram which revealed an ejection fraction of 30-35%. Patient is currently wearing a LifeVest and states that he was placed on a water pill which he has been taking regularly. Patient states that starting yesterday he noticed that he gets short of breath while he is asleep and when he wakes up suddenly from sleep but otherwise he feels fine. Patient states that driving into the emergency department and now while sitting in the ER he feels and is not having any shortness of breath. Patient currently denies any chest pain, any nausea, vomiting, abdominal pain, fevers or chills, and is denying any additional symptoms at this time. There are no other modifying, alleviating, or precipitating factors. Related Data Allergies Allergy/AdvReac Type Severity Reaction Status Date / Time nut - unspecified Allergy Unknown Unknown Verified 07/16/22 02:03 Penicillins Allergy Unknown Unknown Verified 07/16/22 02:03 prednisone Allergy Swelling Verified 10/12/23 18:07 BP med Allergy Mild Rash Uncoded 07/16/22 02:03 Review of Systems Review of Systems: All systems are reviewed and are negative unless stated otherwise in the HPI. [facility] Past Medical History Medical History Cardiomyopathy Elevated troponin Hypertension Surgical History Surgical History No pertinent past surgical history Family History Family History Sibling Hypertension Congestive heart failure Cerebrovascular accident Mother Hypertension Social History Social History Social History: The patient lives with his . He does not have a durable power trade mark attorney. He is a full code. He has no children. 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 He was supposed to start work at a new job tomorrow but has not been able to make it. He smokes marijuana on a daily basis. He smokes cigarettes a half pack cigarettes a day. Smoking packs per day: 0.5 Smoking cigarettes per day: 10.0 Years smoked: 30 Smoking pack-years: 15.00 Smoking status: Current every day smoker Tobacco type: cigarettes Additional smoking assessment comments: Daily marijuana Alcohol intake: current Drinks per week: 2 Alcohol use details: social Substance use: current Substance use type: marijuana and other Other substance usage details: Ecstacy for nightmares Last use: Last week Do You Feel Safe in your Home?: Yes Lack of Transportation: No Lack of Food: Never True Current Housing: I Have Housing Concerned About Future Housing: No Difficulty Paying Gas/Electric Bills: No Difficulty Paying for Meds: No Currently Unemployed: No Education: High School Diploma/GED Difficulty w/ Childcare or Family Care: No Living arrangements: with family Occupation/Education: unemployed 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 Gender identity (if verbalized by the patient): Male Spiritual care concerns: No Agree to blood products: No Exam Narrative: General: Alert, awake, afebrile, in no acute distress. HEENT: PERRL, no rhinorrhea, no post nasal drip, oropharynx clear. Neck: Trachea midline, no JVD, no lymphadenopathy. Cardiovascular: Regular rate and rhythm, no murmurs, rubs or gallops, no peripheral edema. Respiratory: Clear to auscultation bilaterally, no tachypnea, no wheezing, no rhonchi, no rubs, no respiratory distress. Abdomen: So
== END 2023-10-12 20:52 | disposition home or self-care (01) ==
PROVIDERS: Emergency Medicine; Emergency Provider Emergency Medicine
DX: R06.01 Orthopnea (principal); Z20.822 Contact with and (suspected) exposure to COVID-19; I50.9 Heart failure, unspecified; I42.9 Cardiomyopathy, unspecified; I11.0 Hypertensive heart disease with heart failure; F17.210 Nicotine dependence, cigarettes, uncomplicated; R94.31 Abnormal electrocardiogram [ECG] [EKG]
CPT/HCPCS: 36415; 71045; 80053; 83880; 84484; 85025; 85610; 85730; 87637; 93005; 99284

== ENCOUNTER 2024-01-08 15:17 | Emergency (ER) | payer BC, SELFPAY ==
[2024-01-08 15:29] VITALS: BP 150/102; PULSE 84; RESP 16; TEMP 35.8; O2SAT 98
--- NOTE | 2024-01-08 15:40 | ED.URI ---
HPI - URI/Sore Throat General Chief Complaint: Upper Respiratory Infection Stated Complaint: COVID EXPOSURE NO SYMPTOMS Time Seen by Provider: 01/08/24 15:32 Source: patient and RN notes reviewed Mode of arrival: ambulatory Limitations: no limitations History of Present Illness HPI Narrative: Patient presents today requesting a COVID test. Patient's aunt is currently living with him while she is waiting to move into another residence and was recently diagnosed with COVID. Patient is not currently experiencing any symptoms. History of hypertension, diabetes, cardiomyopathy. He is wearing a life vest with 30% EF. States he needs a note to return to work. Related Data Allergies Allergy/AdvReac Type Severity Reaction Status Date / Time nut - unspecified Allergy Unknown Unknown Verified 01/08/24 15:24 Penicillins Allergy Unknown Unknown Verified 01/08/24 15:24 prednisone Allergy Swelling Verified 01/08/24 15:24 BP med Allergy Mild Rash Uncoded 01/08/24 15:24 Review of Systems Review of Systems: CONSTITUTIONAL: Denies body aches, fever, chills, or sweats. EYES: Denies visual changes, redness, or discharge. ENT: Denies rhinorrhea, congestion, sore throat, or otalgia. CARDIOVASCULAR: Denies chest pain, palpitations, or edema. RESPIRATORY: Denies cough or dyspnea. GASTROINTESTINAL: Denies abdominal pain, nausea, vomiting, or diarrhea. GENITOURINARY: Denies dysuria or hematuria. SKIN: Denies rash, itching, or wounds. MUSCULOSKELETAL: Denies back pain, joint pain, or myalgia. NEUROLOGIC: Denies headache, numbness, tingling, or weakness. PSYCH: Denies depression or anxiety. [facility] Past Medical History Medical History Cardiomyopathy Elevated troponin Hypertension Surgical History Surgical History No pertinent past surgical history Family History Family History Sibling Hypertension Congestive heart failure Cerebrovascular accident Mother Hypertension Social History Social History Social History: The patient lives with his . He does not have a durable power sports attorney. He is a full code. He has no children. 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 He was supposed to start work at a new job tomorrow but has not been able to make it. He smokes marijuana on a daily basis. He smokes cigarettes a half pack cigarettes a day. Smoking packs per day: 0.5 Smoking cigarettes per day: 10.0 Years smoked: 30 Smoking pack-years: 15.00 Smoking status: Current every day smoker Tobacco type: cigarettes Additional smoking assessment comments: Daily marijuana Alcohol intake: current Drinks per week: 2 Alcohol use details: social Substance use: current Substance use type: marijuana and other Other substance usage details: Ecstacy for nightmares Last use: Last week Do You Feel Safe in your Home?: Yes Lack of Transportation: No Lack of Food: Never True Current Housing: I Have Housing Concerned About Future Housing: No Difficulty Paying Gas/Electric Bills: No Difficulty Paying for Meds: No Currently Unemployed: No Education: High School Diploma/GED Difficulty w/ Childcare or Family Care: No Living arrangements: with family Occupation/Education: unemployed 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 Gender identity (if verbalized by the patient): Male Spiritual care concerns: No Agree to blood products: No Comments At time of signature, I have reviewed and agree with nursing past medical, surgical, social and family history unless otherwise noted. Please see nursing chart for further information. There is no relevant family history pertinent to the presenting complaint Exam Na
== END 2024-01-08 15:44 | disposition home or self-care (01) ==
PROVIDERS: Emergency Provider Nurse Practitioner
DX: Z20.822 Contact with and (suspected) exposure to COVID-19 (principal); F17.210 Nicotine dependence, cigarettes, uncomplicated; F12.90 Cannabis use, unspecified, uncomplicated; I42.9 Cardiomyopathy, unspecified; I10 Essential (primary) hypertension; E11.9 Type 2 diabetes mellitus without complications
CPT/HCPCS: 99211; G0463

== ENCOUNTER → 2024-06-29 16:52 | Emergency (ER) | payer BC, SELFPAY ==
--- NOTE | 2024-06-29 17:19 | PC.NURSE ---
1718 Left from lobby without being seen. He told patient access person.
== END | disposition left against medical advice (07) ==
PROVIDERS: Emergency Provider Nurse Practitioner Family
DX: Z53.21 Procedure and treatment not carried out due to patient leaving prior to being seen by health care provider (principal)
CPT/HCPCS: 99199

== ENCOUNTER 2024-07-02 18:05 | Emergency (ER) | payer BC, SELFPAY ==
--- NOTE | ~2024-07-02 | CT_ITS ---
EXAMINATION: CT lumbar spine wo con DATE: 07/02/2024 21:08 INDICATION: Back pain TECHNIQUE: Computed tomography (CT) of the head was performed without intravenous contrast. The mA wa s adjusted according to patient size. Iterative reconstruction technique was employed. Exam dose: 11 75.69 mGy-cm total exam DLP. Lumbar spine COMPARISON: 08/02/2023 CT lumbar spine FINDINGS: There is a transitional first sacral vertebra with bilateral pseudoarthrosis of the transve rse elements at S1-S2. This may be a source of chronic low back pain. No fracture or bone destruction, spondylolysis or spondylolisthesis. There is very severe degenerative disc disease at L4-5 and L5-S1, with severe eburnation of the appos ing vertebral vertebral bodies at L4-5. Normal appendix. Normal caliber of the abdominal aorta. 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 Reviewed, dictated and finalized at [facility]. 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
[2024-07-02 18:06] VITALS: BP 182/109; PULSE 67; RESP 16; TEMP 36.3; O2SAT 100
[2024-07-02] MEDS: KETOROLAC 30 MG/ML VIAL (*BKC) 15 MG IM (19:21)
[2024-07-02] MEDS: HYDROcodone/acetaminophen (*CRX) 7.5-325 MG TABLET 1 TAB PO (19:21)
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
== END 2024-07-02 21:15 | disposition home or self-care (01) ==
PROVIDERS: Emergency Provider Emergency Medicine
DX: K08.89 Other specified disorders of teeth and supporting structures (principal); S39.012A Strain of muscle, fascia and tendon of lower back, initial encounter; F17.210 Nicotine dependence, cigarettes, uncomplicated; I10 Essential (primary) hypertension; V43.62XA Car passenger injured in collision with other type car in traffic accident, initial encounter
CPT/HCPCS: 72131; 96372; 99283; A9270; J1885

== ENCOUNTER 2024-07-22 12:10 | Emergency (ER) | payer BC, SELFPAY ==
--- NOTE | ~2024-07-22 | XR_ITS ---
XR chest 2V DATE: 07/22/2024 12:51 INDICATION: Shortness of breath. History of CHF. TECHNIQUE: PA and lateral views COMPARISON: 10/12/2023 portable AP chest FINDINGS: Cardiomegaly. Bilateral hyperinflation. No pulmonary infiltrate or consolidation, pleural e ffusion or pulmonary vascular congestion or pneumothorax is detected. Bilateral hyperinflation. IMPRESSION: Cardiomegaly; resolution of pulmonary vascular congestion since 10/12/2023 Bilateral hyperinflation Reviewed, dictated and finalized at [facility]. K DRIVING IMPRESSION: Cardiomegaly; resolution of pulmonary vascular congestion since 10/11 Bilateral hyperinflation
--- NOTE | 2024-07-22 12:14 | ECG_ITS ---
Test Date: 2024-07-22 12:29:17 Measurements Intervals [place] Rate: 77 P: 73 [place]: 179 QRS: 78 QRSD: 94 T: -42 QT: 378 QTc: 429 Interpretive Statements SINUS RHYTHM POSSIBLE LEFT ATRIAL ENLARGEMENT [-0.1mV P WAVE IN V1/V2] ST DEVIATION AND MODERATE T-WAVE ABNORMALITY, CONSIDER INFERIOR ISCHEMIA [-0.1+ mV T WAVE IN II/aVF] ABNORMAL ECG No previous ECG available for comparison Electronically Signed On 07-22-2024 17:38:57 NURSE CHARGE RN by Marc Costa M.D.
[2024-07-22 12:42] LABS: Basophils Absolute Auto 0.1 K/mm3 (0.0-0.1); Basophils Percent Auto 0.5 % (0.2-1.2); Eosinophils Absolute Auto 0.4 K/mm3 (0-0.3); Eosinophils Percent Auto 3.7 % (0-4.4); Hematocrit 44.6 % (42.0-52.0); Hemoglobin 15.3 g/dL (14.0-18.0); Immature Granulocyte Absolute 0.04 K/mm3 (0.00-0.031); Immature Granulocyte Percent A 0.4 % (0-0.5); Lymphocytes Absolute Auto 2.36 K/mm3 (0.9-3.2); Lymphocytes Percent Auto 24.3 % (18.3-44.2); Mean Corpuscular HGB Conc 34.3 g/dl (32-36); Mean Corpuscular Hemoglobin 31.5 pg (26-34); Mean Corpuscular Volume 91.8 fl (80-100); Mean Platelet Volume 8.8 fl (7.4-10.4); Monocytes Percent Auto 10.1 % (2.6-8.5); Neutrophils Absolute Auto 5.9 K/mm3 (1.3-6.7); Platelet Count Result 297 k/mm3 (150-375); Red Blood Count 4.86 M/mm3 (4.6-6.20); White Blood Count 9.7 K/mm3 (4.5-10.0)
[2024-07-22 12:51] LABS: Alanine Aminotransferase 32 U/L (6-50); Albumin Level 4.4 g/dL (3.5-5.1); Alkaline Phosphatase 68 U/L (38-126); Anion Gap 6 mmol/L (4-12); Aspartate Amino Transferase 33 U/L (17-59); Bilirubin,Total 0.9 mg/dL (0.2-1.3); Blood Urea Nitrogen 31 mg/dL (9-20); Carbon Dioxide 33 mmol/L (22-30); Chloride 100 mmol/L (98-107); Estimated Glomerular Filt Rate > 60; Glucose 84 mg/dL (65-110); Potassium 4.7 mmol/L (3.4-5.0); Sodium 139 mmol/L (137-145)
[2024-07-22 12:53] VITALS: BP 159/113; PULSE 90; RESP 20; TEMP 36.8; O2SAT 92
[2024-07-22 13:02] LABS: Partial Thromboplastin Time 27.4 Seconds (22.3-36.8); Prothrombin Time 13.3 Seconds (11.1-14.7)
[2024-07-22 13:03] LABS: NT Pro B Type Natriuretic Pept 411 pg/mL (19.9-100); Troponin I 0.014 ng/mL (0.000-0.034)
--- NOTE | 2024-07-22 14:56 | ED_ITS ---
HPI - SOB/Dyspnea General Chief Complaint: Shortness of Breath/Dyspnea Stated Complaint: SOB,BLOATED P OX 94% Time Seen by Provider: 07/22/24 14:56 Focused HPI: This is a 44 year old male that presents to the ER for shortness of breath. Ongoing over the last 2 days. Reports history of asthma. He has not tried his inhaler. Reports history of fluid around his heart. He is a smoker. Reports intermittent chest pain, none currently. He does take Furosemide daily. Reports he has been gaining weight and is feeling bloated. GENERAL: Well-appearing, well-nourished, and in no acute distress. HEAD: Normocephalic, atraumatic. CHEST: Clear to auscultation. ?No respiratory distress. HEART: Regular rate and rhythm.? NEURO: ?Alert and oriented x3. Patient screened in triage and initial orders placed.? ?Additional care and disposition to be based upon?diagnostic testing and treatment. Related Data Allergies Allergy/AdvReac Type Severity Reaction Status Date / Time nut - unspecified Allergy Unknown Unknown Verified 01/08/24 15:24 Penicillins Allergy Unknown Unknown Verified 01/08/24 15:24 prednisone Allergy Swelling Verified 01/08/24 15:24 BP med Allergy Mild Rash Uncoded 01/08/24 15:24 PMFSH Past Medical History Medical History Cardiomyopathy Elevated troponin Hypertension Surgical History Surgical History No pertinent past surgical history Family History Family History Sibling Hypertension Congestive heart failure Cerebrovascular accident Mother Hypertension Social History Social History Social History: The patient lives with his . He does not have a durable power employee benefits attorney. He is a full code. He has no children. 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 He was supposed to start work at a new job tomorrow but has not been able to make it. He smokes marijuana on a daily basis. He smokes cigarettes a half pack cigarettes a day. Smoking packs per day: 0.5 Smoking cigarettes per day: 10.0 Years smoked: 30 Smoking pack-years: 15.00 Smoking status: Current every day smoker Tobacco type: cigarettes Additional smoking assessment comments: Daily marijuana Alcohol intake: current Drinks per week: 2 Alcohol use details: social Substance use: current Substance use type: marijuana and other Other substance usage details: Ecstacy for nightmares Last use: Last week Do You Feel Safe in your Home?: Yes Lack of Transportation: No Lack of Food: Never True Current Housing: I Have Housing Concerned About Future Housing: No Difficulty Paying Gas/Electric Bills: No Difficulty Paying for Meds: No Currently Unemployed: No Education: High School Diploma/GED Difficulty w/ Childcare or Family Care: No Living arrangements: with family Occupation/Education: unemployed 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 Gender identity (if verbalized by the patient): Male Spiritual care concerns: No Agree to blood products: No Course Vital Signs Vital signs: Vital Signs Temperature 98.2 F 07/22/24 12:53 Pulse Rate 90 07/22/24 12:53 Respiratory Rate 07/22/24 12:53 Blood Pressure 159/113 H 07/22/24 12:53 Pulse Oximetry 92 07/22/24 12:53 Oxygen Delivery Room Air 07/22/24 12:53 Temperature 98.2 F 07/22/24 12:53 Pulse Rate 90 07/22/24 12:53 Respiratory Rate 20 07/22/24 12:53 Blood Pressure 159/113 H 07/22/24 12:53 Pulse Oximetry 92 07/22/24 12:53 Oxygen Delivery Room Air 07/22/24 12:53 MDM - SOB/Dyspnea MDM Narrative Medical decision making narrative: Patient left after medical screening exam and initial workup, and before any further evaluation management Lab Data 07/22/24 12:32 07/22/24 12:32 Labs: Lab Results 07/22/24 Range/Units 12:32 WBC 9.7 (4.5-10.0) K/mm3 RBC 4.86 (4.6-6.20) M/mm3 Hgb 15.3 (14.0-18.0) g/dL Hct 44.6 (42.0-52.0) % MCV 91.8 (80-100) fl MCH 31.5 (26-34) pg MCHC 34.3 (32-36) g/dl RDW 13.0 (11.5-14.5) % Plt Count 297 (150-375) k/mm3 MPV 8.8 (7.4-10.4) fl Immature Gran % (Auto) 0.4 (0-0.5) % Neut % (Auto) 61.0 (45.5-73.1) % Lymph % (Auto) 24.3 (18.3-44.2) % Hooker % (Auto) 10.1 H (2.6-8.5) % Eos % (Auto) 3.7 (0-4.4) % Baso % (Auto) 0.5 (0.2-1.2) % Lymph # (Auto) 2.36 (0.9-3.2) K/mm3 Hooker # (Auto) 1.0 H (0.1-0.6) K/mm3 Eos # (Auto) 0.4 H (0-0.3) K/mm3 Baso # (Auto) 0.1 (0.0-0.1) K/mm3 Abs Immat Gran (auto) 0.04 H (0.00-0.031) K/mm3 Absolute Neuts (auto) 5.9 (1.3-6.7) K/mm3 Absolute Nucleated RBC 0.000 (0.0-0.012) K/mm3 Nucleated RBC % 0.0 (0.0-0.2) % PT 13.3 (11.1-14.7) Seconds INR 1.0 APTT 27.4 (22.3-36.8) Seconds Sodium 139 (137-145) mmol/L Potassium 4.7 (3.4-5.0) mmol/L Chloride 100 (98-107) mmol/L Carbon Dioxide 33 H (22-30) mmol/L Anion Gap 6 (4-12) mmol/L BUN 31 H (9-20) mg/dL Creatinine 1.31 H (0.7-1.3) mg/dL Estim Creat Clear Calc Not Reportable Estimated GFR > 60 (59 - ) Glucose 84 (65-110) mg/dL Calcium 9.0 (8.4-10.2) mg/dL Total Bilirubin 0.9 (0.2-1.3) mg/dL AST 33 (17-59) U/L ALT 32 (6-50) U/L Alkaline Phosphatase 68 (38-126) U/L Troponin I 0.014 (0.000-0.034) ng/mL NT-Pro-B Natriuret Pep 411 H (19.9-100) pg/mL Total Protein 8.0 (6.3-8.2) g/dL Albumin 4.4 (3.5-5.1) g/dL Imaging Data Radiologist's impression: ITS Impressions Chest X-Ray 07/22/24 13:16 IMPRESSION: Cardiomegaly; resolution of pulmonary vascular congestion since 10/12/2023 Bilateral hyperinflation Discharge Plan Discharge Clinical Impression: Shortness of breath Patient Disposition: Elopement After Seen by Prov Condition: Guarded Prognosis Patient Language: German Prescriptions: No Action methocarbamol 500 mg tablet 500 mg PO HS PRN (Reason: muscle pain) Qty: 10 0RF hydrocodone-acetaminophen 5-325 mg tablet 1 tablet PO Q8H PRN (Reason: pain) Qty: 7 0RF clindamycin HCl 150 mg capsule 450 mg PO Q8H 7 Days Qty: 63 0RF carvedilol [Coreg] 12.5 mg Tablet 12.5 mg PO Q12HR Qty: 60 2RF aspirin 81 mg Tablet,Delayed Release (Dr/Ec) 81 mg PO QAM Qty: 30 2RF Jardiance 10 mg Tablet 10 mg PO DAILY Qty: 30 2RF furosemide 40 mg Tablet 40 mg PO DAILY Qty: 30 2RF Entresto 49-51 mg Tablet 1 tablet PO Q12HR Qty: 60 2RF spironolactone 25 mg Tablet 25 mg PO QAM Qty: 30 2RF Follow-up/Referrals: PHYSICIAN,EMERGENCY RESPONSE OFFICER [Primary Care Provider] -
[2024-07-22] MEDS: IPRATROPIUM 0.5 MG/ALBUTEROL SULFATE 2.5 MG AMPUL.NEB 3 ML INHALATION (15:17)
--- NOTE | 2024-07-22 18:13 | PC.NURSE ---
pt did not answer when called to a room, not seen in ed, was not seen exiting ed - did not notify internist he was leaving
== END 2024-07-22 18:31 | disposition left against medical advice (07) ==
LOC: ANHED 18:14
PROVIDERS: Emergency Medicine; Emergency Provider Physician Assistant
DX: R06.02 Shortness of breath (principal); J45.909 Unspecified asthma, uncomplicated; I10 Essential (primary) hypertension; F17.210 Nicotine dependence, cigarettes, uncomplicated
CPT/HCPCS: 36415; 71046; 80053; 83880; 84484; 85025; 85610; 85730; 93005; 94640; 99284

== ENCOUNTER 2024-10-01 16:06 | Emergency (ER) | payer BC, SELFPAY ==
--- NOTE | 2024-10-01 16:09 | ED_ITS ---
HPI - General Adult General Chief complaint: Dental/Oral Stated complaint: TOOTHACHE Time Seen by Provider: 10/01/24 16:09 Source: patient Mode of arrival: ambulatory Limitations: no limitations History of Present Illness HPI narrative: 44-year-old male patient presents to [facility] with complaints of right-sided lower dental pain for the past 5 days. Denies fevers, body aches or chills. Patient states he has been taking Tylenol and ibuprofen for pain. Patient states he was seen in June for a similar toothache and was given antibiotics at that time but never followed up with a dentist. Related Data Home Medications ?Medication ?Instructions ?Recorded ?Confirmed ?Last Taken ?Type bupropion HCl 150 mg 24 hr tablet, mg PO 10/01/24 Unknown History extended release losartan 50 mg tablet mg 10/01/24 Unknown History magnesium oxide 400 mg (241.3 mg mg 10/01/24 Unknown History magnesium) tablet prazosin 1 mg capsule mg 10/01/24 Unknown History prazosin 2 mg capsule mg 10/01/24 Unknown History vericiguat 2.5 mg tablet (Verquvo) mg 10/01/24 Unknown History Allergies Allergy/AdvReac Type Severity Reaction Status Date / Time nut - unspecified Allergy Unknown Unknown Verified 10/01/24 16:17 Penicillins Allergy Unknown Unknown Verified 10/01/24 16:17 prednisone Allergy Swelling Verified 10/01/24 16:17 BP med Allergy Mild Rash Uncoded 10/01/24 16:17 Review of Systems Review of Systems: CONSTITUTIONAL: Denies fever, chills, or sweats. EYES: Denies visual changes, redness, or discharge. ENT: Denies rhinorrhea, congestion, sore throat, or otalgia. Positive right lower dental pain x5 days CARDIOVASCULAR: Denies chest pain, palpitations, or edema. RESPIRATORY: Denies cough or dyspnea. GASTROINTESTINAL: Denies abdominal pain, nausea, vomiting, or diarrhea. GENITOURINARY: Denies dysuria or hematuria. SKIN: Denies rash or itching. MUSCULOSKELETAL: Denies back pain, joint pain, or myalgia. NEUROLOGIC: Denies headache, numbness, or weakness. PSYCHIATRIC: Denies anxiety or depression. [facility] Past Medical History Medical History Marijuana use Dental abscess Tobacco abuse Asthma Pulmonary edema BASILIO (dyspnea on exertion) Uncontrolled hypertension Tobacco dependence Acute congestive heart failure Polysubstance use disorder Nonsustained ventricular tachycardia Cardiomyopathy Elevated troponin Hypertension Surgical History Surgical History No pertinent past surgical history Family History Family History Sibling Hypertension Congestive heart failure Cerebrovascular accident Mother Hypertension Social History Social History Social History: The patient lives with his . He does not have a durable power environmental attorney. He is a full code. He has no children. 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 He was supposed to start work at a new job tomorrow but has not been able to make it. He smokes marijuana on a daily basis. He smokes cigarettes a half pack cigarettes a day. Smoking packs per day: 0.5 Smoking cigarettes per day: 10.0 Years smoked: 30 Smoking pack-years: 15.00 Smoking status: Current every day smoker Tobacco type: cigarettes Additional smoking assessment comments: Daily marijuana Alcohol intake: current Drinks per week: 2 Alcohol use details: social Substance use: current Substance use type: marijuana and other Other substance usage details: Ecstacy for nightmares Last use: Last week Do You Feel Safe in your Home?: Yes Lack of Transportation: No Lack of Food: Never True Current Housing: I Have Housing Concerned About Future Housing: No Difficulty Paying Gas/Electric Bills: No Difficulty Paying for Meds: No Currently Unemployed: No Education: High School Diploma/GED Difficulty w/ Childcare or Family Care: No Living arrangements: with family Occupation/Education: unemployed 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 Gender identity (if verbalized by the patient): Male Spiritual care concerns: No Agree to blood products: No Comments At the time of my signature I agree with nursing past medical history, surgical, social, and family history. There is no relevant family history pertinent to the presenting complaint. Exam Narrative: GENERAL: Well-appearing, well-nourished, and in no acute distress. HEAD: Normocephalic, atraumatic. EYES: PERRLA and EOMI. ENT: Nares clear, no rhinorrhea or epistaxis. Mucous membranes moist. no swelling noted to right cheek. There is a broken tooth to the number 30 on the right lower dental cavity. There is some swelling and erythema noted around the gum but no obvious open wounds or drainage noted. Patient tolerating secretions well NECK: Supple. No lymphadenopathy CHEST: Clear to auscultation. No respiratory distress. HEART: Regular rate and rhythm. No murmur heard. Normal peripheral pulses. ABDOMEN: Soft, nontender, nondistended, normal active bowel sounds. EXTREMITIES: Normal range of motion. No edema. SKIN: Warm, dry, no rash. NEURO: No focal deficits. Alert and oriented x3. Course Course Level of Care: Express Care Visit Vital Signs Vital signs: Vital Signs Temperature 36.2 C L 10/01/24 16:14 Pulse Rate 71 10/01/24 16:14 Respiratory Rate 16 10/01/24 16:14 Blood Pressure 168/104 H 10/01/24 16:14 Pulse Oximetry 97 10/01/24 16:14 Temperature 36.2 C L 10/01/24 16:14 Pulse Rate 71 10/01/24 16:14 Respiratory Rate 16 10/01/24 16:14 Blood Pressure 168/104 H 10/01/24 16:14 Pulse Oximetry 97 10/01/24 16:14 Vital signs reviewed. The patient has been informed that they may have pre-hypertension or Hypertension based on a BP reading in the department. I recommend that the patient call the primary care provider listed on their discharge instructions or a physician of their choice this week to arrange follow up for further evaluation of possible pre-hypertension or Hypertension patient is known to be uncontrolled hypertension Medical Decision Making MDM Narrative Medical decision making narrative: plan of care patient is to provide him oral antibiotics today for the tooth infection. Patient may take Tylenol and ibuprofen as needed for pain. Patient has been given dental referral for follow-up. Differential Diagnosis Differential Diagnosis: Differential diagnosis: Dental caries, periodontal disease, avulsed tooth, tooth infections, mandibular infection, Dimitrios's angiana, upper tooth infection, dry socket, gingivitis, acute necrotizing ulcerative gingivitis, sialolithiasis. Vital Signs Vital Signs: Vital Signs Temperature 36.2 C L 10/01/24 16:14 Pulse Rate 71 10/01/24 16:14 Respiratory Rate 16 10/01/24 16:14 Blood Pressure 168/104 H 10/01/24 16:14 Pulse Oximetry 97 10/01/24 16:14 Temperature 36.2 C L 10/01/24 16:14 Pulse Rate 71 10/01/24 16:14 Respiratory Rate 16 10/01/24 16:14 Blood Pressure 168/104 H 10/01/24 16:14 Pulse Oximetry 97 10/01/24 16:14 Critical Care Time Critical Care Time Critical Care Time: No Discharge Plan Discharge Clinical Impression: Tooth infection Patient Disposition: Home, Self-Care Condition: Stable Instructions: Antibiotic Form, Dental Abscess (ED), Toothache (ED) Additional Instructions: Antibiotic as directed Avoid temperature extremes May apply heat or ice to the face Gentle brushing and flossing Alternate Tylenol and ibuprofen as needed for pain Follow-up with the dentist as soon as possible--see the list provided Patient Language: Nepali Prescriptions: New clindamycin HCl 300 mg capsule 300 mg PO TID 7 Days Qty: 21 0RF clindamycin HCl 150 mg capsule 150 mg PO TID 7 Days Qty: 21 0RF No Action losartan 50 mg tablet prazosin 1 mg capsule magnesium oxide 400 mg (241.3 mg magnesium) tablet prazosin 2 mg capsule bupropion HCl 150 mg tablet extended release 24 hr PO Verquvo 2.5 mg tablet carvedilol [Coreg] 12.5 mg Tablet 12.5 mg PO Q12HR Qty: 60 2RF aspirin 81 mg Tablet,Delayed Release (Dr/Ec) 81 mg PO QAM Qty: 30 2RF furosemide 40 mg Tablet 40 mg PO DAILY Qty: 30 2RF spironolactone 25 mg Tablet 25 mg PO QAM Qty: 30 2RF Follow-up/Referrals: UNKNOWN,DOCTOR [Primary Care Provider] - Time of Disposition: 16:27
[2024-10-01 16:14] VITALS: BP 168/104; PULSE 71; RESP 16; TEMP 36.2; O2SAT 97
== END 2024-10-01 16:31 | disposition home or self-care (01) ==
PROVIDERS: Emergency Provider Nurse Practitioner Family
DX: K04.7 Periapical abscess without sinus (principal); J45.909 Unspecified asthma, uncomplicated; I11.0 Hypertensive heart disease with heart failure; I50.9 Heart failure, unspecified; I42.9 Cardiomyopathy, unspecified; F17.210 Nicotine dependence, cigarettes, uncomplicated; F12.90 Cannabis use, unspecified, uncomplicated
CPT/HCPCS: 99213; G0463